=== PATIENT | female | born 1965 | race Caucasian/White ===

== ENCOUNTER → 2016-10-20 | Outpatient (CLI) | payer OTHER ==
[2016-10-20 15:34] LABS: Basophils # (A) 0.1 k/uL (0-0.2); Basophils % (A) 2 %; CH 29.4; CHCM 33.6; Eosinophils # (A) 0.4 k/uL (0-0.7); Eosinophils % (A) 5 %; HDW 2.68; HGB 14.1 gm/dL (11.4-16.0); Luc % (Auto) 1; Lymphocytes # (A) 2.8 k/uL (1.0-4.8); Lymphocytes % (A) 36 %; MCH 30.3 pg (25.0-35.0); MCHC 34.5 g/dL (31.0-37.0); Mean Platelet Volume 8.1; Monocytes # (A) 0.3 k/uL (0-1.0); Monocytes % (A) 4 %; Neutrophils # (A) 4.1 k/uL (1.3-7.7); Neutrophils % (A) 52 %; RBC 4.66 m/uL (3.80-5.40); RDW 13.4 % (11.5-15.5); WBC 7.8 k/uL (3.8-10.6); WBC (Perox) 8.06
[2016-10-20 15:39] LABS: ALT 51 U/L (9-52); AST 22 U/L (14-36); Alkaline Phosphatase 109 U/L (38-126); Anion Gap 10 mmol/L; Blood Urea Nitrogen 13 mg/dL (7-17); Carbon Dioxide 27 mmol/L (22-30); Chloride 108 mmol/L (98-107); Glucose 93 mg/dL (74-99); Non-African American GFR(MDRD) >60 (>60 ml/min/1.73 sqM); Potassium 4.6 mmol/L (3.5-5.1); Sodium 145 mmol/L (137-145); Total Bilirubin 0.5 mg/dL (0.2-1.3); Total Protein 6.7 g/dL (6.3-8.2)
[2016-10-20 18:37] LABS: Hemoglobin A1C 6.4 % (4.2-6.1)
== END | disposition home or self-care (01) ==
LOC: LABWHC1 15:07
PROVIDERS: ATTEND Family Medicine
DX: E11.9 Type 2 diabetes mellitus without complications (principal); I10 Essential (primary) hypertension
CPT/HCPCS: 36415; 80053; 83036; 85025

== ENCOUNTER → 2017-01-12 | Outpatient (CLI) | payer OTHER ==
[2017-01-12 14:51] LABS: Basophils % (A) 1 %; CHCM 34.3; Eosinophils # (A) 0.4 k/uL (0-0.7); Eosinophils % (A) 4 %; HDW 2.91; HGB 14.9 gm/dL (11.4-16.0); Luc # (Auto) 0.13; Luc % (Auto) 1; Lymphocytes # (A) 2.5 k/uL (1.0-4.8); Lymphocytes % (A) 26 %; MCH 29.7 pg (25.0-35.0); MCHC 33.9 g/dL (31.0-37.0); MCV 87.8 fL (80.0-100.0); Mean Platelet Volume 7.7; Monocytes # (A) 0.6 k/uL (0-1.0); Monocytes % (A) 6 %; Neutrophils # (A) 5.9 k/uL (1.3-7.7); Neutrophils % (A) 62 %; RBC 5.01 m/uL (3.80-5.40); RDW 12.6 % (11.5-15.5); WBC 9.5 k/uL (3.8-10.6); WBC (Perox) 9.18
[2017-01-12 15:04] LABS: ALT 33 U/L (9-52); AST 18 U/L (14-36); Alkaline Phosphatase 112 U/L (38-126); Anion Gap 10 mmol/L; Blood Urea Nitrogen 7 mg/dL (7-17); Calcium 9.6 mg/dL (8.4-10.2); Carbon Dioxide 27 mmol/L (22-30); Chloride 107 mmol/L (98-107); Cholesterol 126 mg/dL (<200); Glucose 125 mg/dL (74-99); HDL Cholesterol 45 mg/dL (40-60); Non-African American GFR(MDRD) >60 (>60 ml/min/1.73 sqM); Sodium 144 mmol/L (137-145); Total Bilirubin 0.8 mg/dL (0.2-1.3); Total Protein 7.4 g/dL (6.3-8.2); Triglycerides 155 mg/dL (<150)
[2017-01-12 18:48] LABS: Hemoglobin A1C 6.6 % (4.2-6.1)
== END | disposition home or self-care (01) ==
LOC: LABWHC1 14:35
PROVIDERS: ATTEND Family Medicine
DX: Z00.00 Encounter for general adult medical examination without abnormal findings (principal)
CPT/HCPCS: 36415; 80053; 80061; 83036; 85025

== ENCOUNTER → 2017-02-09 | Outpatient (CLI) | payer OTHER ==
[2017-02-09 13:05] LABS: Hepatitis C Virus IgG Ab Negative (Negative); Hepatitis C Virus IgG Index 0.02
== END | disposition home or self-care (01) ==
LOC: LABWHC1 11:38
PROVIDERS: ATTEND Family Medicine
DX: Z00.00 Encounter for general adult medical examination without abnormal findings (principal)
CPT/HCPCS: 36415; 84443; 86803

== ENCOUNTER → 2017-03-24 | Outpatient (CLI) | payer OTHER ==
--- NOTE | 2017-03-28 06:47 | MM ---
Reason for exam: screening (asymptomatic). Last mammogram was performed 1 year and 5 months ago. History: Patient is postmenopausal. Physical Findings: A clinical breast exam by your physician is recommended on an annual basis and results should be correlated with mammographic findings. MG Screening Mammo w CAD Bilateral CC and MLO view(s) were taken. Prior study comparison: November 06, 2015, bilateral MG screening mammo w CAD. There are scattered fibroglandular densities. There is no discrete abnormality. ASSESSMENT: Negative, BI-RAD 1 RECOMMENDATION: Routine screening mammogram of both breasts in 1 year.
== END ==
LOC: RADMAMWWP 14:49
PROVIDERS: ATTEND Family Medicine
DX: Z12.31 Encounter for screening mammogram for malignant neoplasm of breast (principal)

== ENCOUNTER → 2017-07-26 | Outpatient (CLI) | payer OTHER ==
[2017-07-26 12:29] LABS: ALT 43 U/L (9-52); AST 23 U/L (14-36); Alkaline Phosphatase 92 U/L (38-126); Anion Gap 9 mmol/L; Blood Urea Nitrogen 14 mg/dL (7-17); Calcium 9.2 mg/dL (8.4-10.2); Carbon Dioxide 26 mmol/L (22-30); Chloride 105 mmol/L (98-107); Glucose 263 mg/dL (74-99); Non-African American GFR(MDRD) >60 (>60 ml/min/1.73 sqM); Potassium 4.2 mmol/L (3.5-5.1); Sodium 140 mmol/L (137-145); Total Bilirubin 0.4 mg/dL (0.2-1.3); Total Protein 6.5 g/dL (6.3-8.2)
[2017-07-27 09:28] LABS: Basophils # (A) 0.1 k/uL (0-0.2); Basophils % (A) 1 %; CH 29.3; CHCM 31.4; Eosinophils # (A) 0.2 k/uL (0-0.7); Eosinophils % (A) 4 %; HDW 2.61; HGB 13.8 gm/dL (11.4-16.0); Hypochromasia Slight; Luc # (Auto) 0.15; Luc % (Auto) 3; Lymphocytes # (A) 1.6 k/uL (1.0-4.8); Lymphocytes % (A) 27 %; MCH 29.5 pg (25.0-35.0); MCHC 31.4 g/dL (31.0-37.0); MCV 93.8 fL (80.0-100.0); Mean Platelet Volume 9.5; Monocytes # (A) 0.3 k/uL (0-1.0); Monocytes % (A) 5 %; Neutrophils # (A) 3.6 k/uL (1.3-7.7); Neutrophils % (A) 61 %; RDW 12.9 % (11.5-15.5); WBC (Perox) 6.11
== END | disposition home or self-care (01) ==
LOC: LABWHC1 11:26
PROVIDERS: ATTEND Family Medicine
DX: E11.9 Type 2 diabetes mellitus without complications (principal); I10 Essential (primary) hypertension
CPT/HCPCS: 36415; 80053; 82306; 83036; 85025

== ENCOUNTER 2017-08-30 22:06 | Emergency (ER) | payer OTHER ==
[2017-08-30] MEDS ORDERED: SODIUM CHLORIDE 0.9% 500 ML IV ONE (22:46)
[2017-08-30 23:28] LABS: Basophils # (A) 0.1 k/uL (0-0.2); Basophils % (A) 1 %; Eosinophils # (A) 0.4 k/uL (0-0.7); Eosinophils % (A) 5 %; HCT 42.5 % (34.0-46.0); HGB 13.6 gm/dL (11.4-16.0); Lymphocytes # (A) 2.3 k/uL (1.0-4.8); Lymphocytes % (A) 31 %; MCH 28.3 pg (25.0-35.0); Mean Platelet Volume 8.3; Monocytes # (A) 0.4 k/uL (0-1.0); Monocytes % (A) 5 %; Neutrophils # (A) 4.1 k/uL (1.3-7.7); Neutrophils % (A) 57 %; Platelet Count 211 k/uL (150-450); WBC 7.3 k/uL (3.8-10.6)
[2017-08-30 23:34] LABS: Partial Thromboplastin Time 22.1 sec (22.0-30.0); Prothrombin Time 9.8 sec (9.0-12.0)
[2017-08-30 23:36] LABS: ALT 74 U/L (9-52); AST 37 U/L (14-36); Albumin 3.9 g/dL (3.5-5.0); Alkaline Phosphatase 132 U/L (38-126); Anion Gap 12 mmol/L; Blood Urea Nitrogen 14 mg/dL (7-17); Calcium 9.3 mg/dL (8.4-10.2); Carbon Dioxide 23 mmol/L (22-30); Chloride 105 mmol/L (98-107); Glucose 185 mg/dL (74-99); Potassium 3.9 mmol/L (3.5-5.1); Sodium 140 mmol/L (137-145); Total Bilirubin 0.3 mg/dL (0.2-1.3); Total Protein 6.2 g/dL (6.3-8.2)
[2017-08-30 23:38] VITALS: TEMP 97.5
[2017-08-30 23:45] LABS: MCV 88.5 fL (80.0-100.0)
--- NOTE | 2017-08-31 00:06 | ED ---
Female Urogenital HPI - General Chief complaint: Vaginal Bleeding Stated complaint: Vag Bleeding Time Seen by Provider: 08/30/17 22:25 Source: patient, EMS Mode of arrival: EMS Limitations: no limitations - History of Present Illness Initial comments: 52-year-old female patient presents to the emergency department today for complaints of vaginal bleeding. Patient states that this started approximately 5 days ago. She states that she has had passage of bright red blood with large clots. She states that she is using 2-3 pads per day. She states that she is postmenopausal, states that her last period was approximately 5 years ago. She states that she has not had any vaginal bleeding since then. She states yesterday evening she was having some suprapubic abdominal cramping. She denies any other pain with this. She states that she presented for evaluations today because she started to feel weak and dizzy. Patient denies any recent rash , fever, chills, shortness breath, chest pain, nausea, vomiting, diarrhea, constipation, back pain, numbness, tingling, hematuria, dysuria, urinary urgency , urinary frequency, headache, visual changes, or any other complaints. Patient has had a history of 2 sections, and right abdominal cyst. Patient states that she routinely gets pap testing and has never had abnormal cells that she knows of. - Related Data Home Medications Medication Instructions Recorded Confirmed Aspirin 81 mg PO DAILY 12/25/13 08/30/17 Atorvastatin [Lipitor] 20 mg PO DAILY 12/25/13 08/30/17 Butalb/Acetaminophen/Caffeine 1 tab PO Q8H PRN 12/25/13 08/30/17 [Fioricet 50-325-40 mg Tablet] Citalopram Hydrobromide 40 mg PO DAILY 12/25/13 08/30/17 [Citalopram HBr] Gabapentin [Neurontin] 600 mg PO TID 12/25/13 08/30/17 Lisinopril [Zestril] 2.5 mg PO DAILY 12/25/13 08/30/17 metFORMIN HCL [metFORMIN HCL ER] 750 mg PO BID 12/25/13 08/30/17 HYDROcodone/APAP 5-325MG [[place] 1 tab PO DAILY PRN 12/26/13 08/30/17 5-325] Verapamil HCl [Verapamil ER] 120 mg PO DAILY 12/26/13 08/30/17 Cholecalciferol (Vitamin D3) 2,000 unit PO DAILY 08/30/17 08/30/17 [Vitamin D3] Ergocalciferol (Vitamin D2) 50,000 unit PO MO 08/30/17 08/30/17 [Vitamin D2] Megestrol Acetate 40 mg PO BID 08/30/17 08/30/17 Allergies Allergy/AdvReac Type Severity Reaction Status Date / Time peach Allergy Rash/Hives Verified 08/30/17 22:23 poison farhat extract AdvReac Rash/Hives Verified 08/30/17 22:23 Review of Systems ROS Statement: Those systems with pertinent positive or pertinent negative responses have been documented in the HPI. ROS Other: All systems not noted in ROS Statement are negative. Past Medical History Past Medical History: Chest Pain / Angina, Diabetes Mellitus, GERD/Reflux, Hyperlipidemia, Hypertension, Sleep Apnea/CPAP/BIPAP Additional Past Medical History / Comment(s): CHEST PAIN RADIATING DOWN LEFT ARM INTERMITT.,SOB W/ ACTIVITY History of Any Multi-Drug Resistant Organisms: None Reported Past Surgical History: Section, Tubal Ligation Additional Past Surgical History / Comment(s): 01/06/2016 - hysteroscopy with dilation and curretage. 2 cysts removed. left arm mass removed. 18 Years old, laser suregery to have cysts removed. Past Anesthesia/Blood Transfusion Reactions: No Reported Reaction Past Psychological History: Depression Smoking Status: Never smoker Past Alcohol Use History: None Reported Past Drug Use History: None Reported - Past Family History Mother Family Medical History: Cancer Additional Family Medical History / Comment(s): uterine cancer General Exam Limitations: no limitations General appearance: alert, in no apparent distress, other (This is a well- developed, well-nourished adult female patient in no acute distress. Vital signs upon presentation were temperature 97.5F, pulse 91, respirations 16, blood pressure 181/115, pulse ox 97% on room air.) Eye exam: Present: normal appearance, PERRL, EOMI. Absent: scleral icterus, conjunctival injection, periorbital swelling ENT exam: Present: normal exam, normal oropharynx, mucous membranes moist Respiratory exam: Present: normal lung sounds bilaterally. Absent: respiratory distress, wheezes, rales, rhonchi, stridor Cardiovascular Exam: Present: regular rate, normal rhythm, normal heart sounds. Absent: systolic murmur, diastolic murmur, rubs, gallop, clicks GI/Abdominal exam: Present: soft, tenderness (Mild suprapubic tenderness), normal bowel sounds. Absent: distended, guarding, rebound, rigid External exam: Present: normal external exam Speculum exam: Present: vaginal bleeding (dark red, small amount), other ( Cervix is pink and moist. No friability, lesions, or masses noted. ) By manual exam: Present: normal by manual exam Extremities exam: Present: normal inspection, full ROM, normal capillary refill. Absent: tenderness, pedal edema, joint swelling, calf tenderness Neurological exam: Present: alert, oriented X3, CN II-XII intact Psychiatric exam: Present: normal affect, normal mood Skin exam: Present: warm, dry, intact, normal color. Absent: rash Course Vital Signs 08/30/17 08/31/17 22:07 00:20 Temperature 97.5 F L Pulse Rate 91 83 Respiratory 16 20 Rate Blood Pressure 188/115 149/76 O2 Sat by Pulse 97 97 Oximetry Medical Decision Making - Medical Decision Making 52-year-old female patient presented to the emergency department today for complaints of vaginal bleeding. Patient is postmenopausal for the last 5 years. Physical examination is unremarkable. Pelvic examination did reveal a small amount of dark red vaginal bleeding, appears to be coming from the cervical os. Bimanual exam is unremarkable. Labs were reviewed and were unremarkable. Ultrasound was obtained and did show a fibroid uterus, cervical cyst, mild endometrial thickening. No adnexal masses. I did discuss findings with the patient. She does have an appointment with her COMMERCIAL ENERGY AUDITOR on 09/12/2017. She is instructed to keep this appointment. I did inform her that she should return immediately should her bleeding increase. She is currently using 2-3 pads per day. I told her this is not concerning at this time for significant blood loss. I did discuss return parameters in detail. She is instructed to return here immediately for any new, worsening, or concerning symptoms. She verbalizes understanding and agrees with this plan. - Lab Data Result diagrams: 08/30/17 23:14 08/30/17 23:14 Lab Results 08/30/17 08/30/17 08/30/17 Range/Units 23:14 23:14 23:14 WBC 7.3 (3.8-10.6) k/uL RBC 4.80 (3.80-5.40) m/uL Hgb 13.6 (11.4-16.0) gm/dL Hct 42.5 (34.0-46.0) % MCV 88.5 D (80.0-100.0) fL MCH 28.3 (25.0-35.0) pg MCHC 32.0 (31.0-37.0) g/dL RDW 14.0 (11.5-15.5) % Plt Count 211 (150-450) k/uL Neutrophils % 57 % Lymphocytes % 31 % Monocytes % 5 % Eosinophils % 5 % Basophils % 1 % Neutrophils # 4.1 (1.3-7.7) k/uL Lymphocytes # 2.3 (1.0-4.8) k/uL Monocytes # 0.4 (0-1.0) k/uL Eosinophils # 0.4 (0-0.7) k/uL Basophils # 0.1 (0-0.2) k/uL PT 9.8 (9.0-12.0) sec INR 1.0 (<1.2) APTT 22.1 (22.0-30.0) sec Sodium 140 (137-145) mmol/L Potassium 3.9 (3.5-5.1) mmol/L Chloride 105 (98-107) mmol/L Carbon Dioxide 23 (22-30) mmol/L Anion Gap 12 mmol/L BUN 14 (7-17) mg/dL Creatinine 0.65 (0.52-1.04) mg/dL Est GFR (MDRD) Af Amer >60 (>60 ml/min/1.73 sqM) Est GFR (MDRD) Non-Af >60 (>60 ml/min/1.73 sqM) Glucose 185 H (74-99) mg/dL Calcium 9.3 (8.4-10.2) mg/dL Total Bilirubin 0.3 (0.2-1.3) mg/dL AST 37 H (14-36) U/L ALT 74 H (9-52) U/L Alkaline Phosphatase 132 H (38-126) U/L Total Protein 6.2 L (6.3-8.2) g/dL Albumin 3.9 (3.5-5.0) g/dL - Radiology Data Radiology results: report reviewed, image reviewed Transvaginal ultrasound of the pelvis was obtained and did show the uterus is anteverted with a heterogenous fibroid uterus largest measuring 5.8 x 5.1 x 5.6 cm and 3.7 x 4.9 x 3.5 cm. There is a solid area in the cervix measuring 1.8 x 1.3 x 2.0 cm. The endometrium is thickened with echogenic foci and 2 anechoic areas seen. Impression by Dr. Andres shows fibroid uterus. Large cervical cyst. The measures 1.8 x 1.3 cm. Mild endometrial thickening. Endometrial thickening 2 cm a similar to the previous exam. No adnexal mass. Disposition Clinical Impression: Dysfunctional uterine bleeding, Fibroid uterus, Cyst of cervix Disposition: HOME SELF-CARE Condition: Good Instructions: Dysfunctional Uterine Bleeding (ED), Uterine Fibroids (ED) Additional Instructions: Increase fluids. Keep your appointment with the COMMERCIAL ENERGY AUDITOR. Return here immediately for any new, worsening, or concerning symptoms. Referrals: Cornell Lloyd MD [Primary Care Provider] - 1-2 days Time of Disposition: 00:34
--- NOTE | 2017-08-31 00:12 | US ---
EXAMINATION TYPE: US transvaginal DATE OF EXAM: 08/30/2017 COMPARISON: 11/06/2015 CLINICAL HISTORY: pain. Abnormal bleeding TECHNIQUE: Transvaginal (TV) Date of LMP: Now EXAM MEASUREMENTS: Uterus: 12.1 x 6.3 x 9.9 cm Endometrial Stripe: 2.1 cm 1. Uterus: Anteverted Heterogenous fibroid uterus largest two measuring 5.8 x 5.1 x 5.6 cm and 3.7 x 4.9 x 3.5 cm. Solid area in cervix measuring 1.8 x 1.3 x 2.0 cm. 2. Endometrium: Thickened with echogenic foci and two anechoic areas seen 3. Right Ovary: Obscured by overlying bowel gas 4. Left Ovary: Obscured by overlying bowel gas 5. Bilateral Adnexa: appears wnl 6. Posterior cul-de-sac: wnl Heterogenous fibroid uterus visualized with thickened endometrium. Solid area seen in cervix measurin g 1.8 x 1.3 x 2.0 cm. IMPRESSION: Fibroid uterus. Large cervical cyst. This measures 1.8 x 1.3 cm. Mild endometrial thicken ing. Endometrial thickening 2 cm is similar to the previous exam. No adnexal mass.
[2017-08-31 00:21] VITALS: BP 149/76; PULSE 83; RESP 20
== END 2017-08-31 00:50 | disposition home or self-care (01) ==
LOC: EC 22:06
DX: N93.8 Other specified abnormal uterine and vaginal bleeding (principal); D25.9 Leiomyoma of uterus, unspecified; N88.8 Other specified noninflammatory disorders of cervix uteri; E11.9 Type 2 diabetes mellitus without complications; E78.5 Hyperlipidemia, unspecified; I10 Essential (primary) hypertension; F32.9 Major depressive disorder, single episode, unspecified; Z98.51 Tubal ligation status; Z91.018 Allergy to other foods; Z91.048 Other nonmedicinal substance allergy status; Z98.890 Other specified postprocedural states; Z79.84 Long term (current) use of oral hypoglycemic drugs; Z79.82 Long term (current) use of aspirin; Z79.899 Other long term (current) drug therapy
CPT/HCPCS: 36415; 76830; 80053; 85025; 85610; 85730; 96360; 99285

== ENCOUNTER → 2017-11-22 | Outpatient (CLI) | payer OTHER ==
[2017-11-22 17:12] LABS: Basophils % (A) 0 %; Eosinophils # (A) 0.3 k/uL (0-0.7); Eosinophils % (A) 3 %; HCT 42.1 % (34.0-46.0); HGB 13.3 gm/dL (11.4-16.0); Lymphocytes # (A) 2.1 k/uL (1.0-4.8); Lymphocytes % (A) 28 %; MCH 27.3 pg (25.0-35.0); MCHC 31.6 g/dL (31.0-37.0); MCV 86.3 fL (80.0-100.0); Mean Platelet Volume 8.2; Monocytes # (A) 0.4 k/uL (0-1.0); Monocytes % (A) 5 %; Neutrophils # (A) 4.8 k/uL (1.3-7.7); Neutrophils % (A) 63 %; Platelet Count 228 k/uL (150-450); RBC 4.88 m/uL (3.80-5.40); RDW 12.9 % (11.5-15.5); WBC 7.7 k/uL (3.8-10.6)
[2017-11-22 17:22] LABS: ALT 56 U/L (9-52); AST 25 U/L (14-36); Albumin 4.1 g/dL (3.5-5.0); Alkaline Phosphatase 126 U/L (38-126); Anion Gap 10 mmol/L; Blood Urea Nitrogen 17 mg/dL (7-17); Calcium 9.7 mg/dL (8.4-10.2); Carbon Dioxide 30 mmol/L (22-30); Chloride 102 mmol/L (98-107); Glucose 147 mg/dL (74-99); Potassium 4.7 mmol/L (3.5-5.1); Sodium 142 mmol/L (137-145); Total Bilirubin 0.3 mg/dL (0.2-1.3); Total Protein 6.5 g/dL (6.3-8.2)
== END | disposition home or self-care (01) ==
LOC: LABWHC1 16:44
PROVIDERS: ATTEND Family Medicine
DX: E11.9 Type 2 diabetes mellitus without complications (principal)
CPT/HCPCS: 36415; 80053; 85025

== ENCOUNTER → 2018-03-21 | Outpatient (CLI) | payer OTHER ==
--- NOTE | 2018-03-22 07:49 | MR ---
MRI CERVICAL SPINE: CLINICAL HISTORY: Cervicalgia per order. Headache with neck pain for 2 years per patient. History of sprain injury per patient. TECHNIQUE: Multiplanar, multisequence imaging of the cervical spine is performed without IV contrast. COMPARISON: Prior MRI cervical spine March 11, 2015. FINDINGS: Sagittal images of the cervical spine show the craniocervical junction to remain within nor mal limits. The cervical and upper thoracic spinal cord remains normal in course, caliber, and signa l. Vertebral alignment is stable and anatomic. The vertebral body and intravertebral disk heights r emain normal. Small posterior disc herniation C5-C6 level is redemonstrated on sagittal images. The bone marrow signal intensity is within normal limits. No significant spurring is seen. Axial images show the C2-C3 level to remain within normal limits. Axial images at C3-C4 level show uncovertebral facet degenerative changes bilaterally contributing to mild bilateral neural foraminal narrowing. Spinal canal is preserved. No significant change from luc or. Axial images at C4-C5 level show uncovertebral facet degenerative changes bilaterally causing mild bi lateral neural foraminal narrowing more prominent versus prior MRI. Axial images at C5-C6 level show broad-based central disc protrusion effacing anterior thecal sac, bi lateral neural foramina are patent. No significant change from prior. Axial images at C6-C7 shows less prominent posterior disc protrusion minimally effacing anterior thec al sac, bilateral neural foramina are patent. No significant change from prior. Axial images at C7-T1 level are felt to remain within normal limits. IMPRESSION: Stable disc herniation C5-C6 level. Additional multilevel degenerative changes as detaile d above. No significant change from prior MRI.
== END | disposition home or self-care (01) ==
LOC: RADMRIMAIN 17:45
PROVIDERS: ATTEND Psychiatry & Neurology Neurology
DX: M50.222 Other cervical disc displacement at C5-C6 level (principal); M47.812 Spondylosis without myelopathy or radiculopathy, cervical region
CPT/HCPCS: 72141

== ENCOUNTER → 2018-05-22 | Outpatient (CLI) | payer OTHER ==
--- NOTE | 2018-05-24 11:12 | MM ---
Reason for exam: screening (asymptomatic). Last mammogram was performed 1 year and 2 months ago. History: Patient is postmenopausal. Took hormonal contraceptives for 28 years beginning at age 18. Physical Findings: A clinical breast exam by your physician is recommended on an annual basis and results should be correlated with mammographic findings. MG Screening Mammo w CAD Bilateral CC and MLO view(s) were taken. Prior study comparison: March 24, 2017, bilateral MG screening mammo w CAD. November 06, 2015, bilateral MG screening mammo w CAD. There are scattered fibroglandular densities. No significant changes when compared with prior studies. ASSESSMENT: Negative, BI-RAD 1 RECOMMENDATION: Routine screening mammogram of both breasts in 1 year.
== END | disposition home or self-care (01) ==
LOC: RADMAMWWP 13:31
PROVIDERS: ATTEND Family Medicine
DX: Z12.31 Encounter for screening mammogram for malignant neoplasm of breast (principal)
CPT/HCPCS: 77067

== ENCOUNTER 2018-06-25 14:16 | Emergency (ER) | payer OTHER ==
[2018-06-25 14:28] VITALS: TEMP 98
--- NOTE | 2018-06-25 14:59 | ED ---
General Adult HPI - General Chief complaint: Recheck/Abnormal Lab/Rx Stated complaint: Hypertension Time Seen by Provider: 06/25/18 14:38 Source: patient, EMS, RN notes reviewed Mode of arrival: EMS Limitations: no limitations - History of Present Illness Initial comments: Patient is a pleasant 53-year-old female presenting to the emergency department for hypertension. Patient went to her customer experience strategist today and was told her blood pressure was high. Blood pressure was approximately 220/120. Patient states overall she feels fine and does not have specific complaint. No chest pain. No dyspnea. No weakness or confusion. Patient does have history of chronic hypertension and does take medication. Patient has not missed her medication. - Related Data Home Medications Medication Instructions Recorded Confirmed Aspirin 81 mg PO DAILY 12/25/13 06/25/18 Atorvastatin [Lipitor] 20 mg PO DAILY 12/25/13 06/25/18 Butalb/Acetaminophen/Caffeine 1 tab PO Q8H PRN 12/25/13 06/25/18 [Fioricet 50-325-40 mg Tablet] Citalopram Hydrobromide 40 mg PO DAILY 12/25/13 06/25/18 [Citalopram HBr] Gabapentin [Neurontin] 600 mg PO TID 12/25/13 06/25/18 Lisinopril [Zestril] 2.5 mg PO DAILY 12/25/13 06/25/18 metFORMIN HCL [metFORMIN HCL ER] 750 mg PO BID 12/25/13 06/25/18 HYDROcodone/APAP 5-325MG [Left Hand 1 tab PO DAILY PRN 12/26/13 06/25/18 5-325] Verapamil HCl [Verapamil ER] 120 mg PO DAILY 12/26/13 06/25/18 Cholecalciferol (Vitamin D3) 2,000 unit PO DAILY 08/30/17 06/25/18 [Vitamin D3] Ergocalciferol (Vitamin D2) 50,000 unit PO AMBROCIO 08/30/17 06/25/18 [Vitamin D2] Meclizine [Antivert] 25 mg PO TID PRN 06/25/18 06/25/18 Multivitamins, Thera [Multivitamin 1 tab PO DAILY 06/25/18 06/25/18 (formulary)] Allergies Allergy/AdvReac Type Severity Reaction Status Date / Time peach Allergy Rash/Hives Verified 06/25/18 15:39 poison farhat extract AdvReac Rash/Hives Verified 06/25/18 15:39 Review of Systems ROS Statement: Those systems with pertinent positive or pertinent negative responses have been documented in the HPI. ROS Other: All systems not noted in ROS Statement are negative. Constitutional: Denies: fever Eyes: Denies: eye pain ENT: Denies: ear pain Respiratory: Denies: cough Cardiovascular: Denies: chest pain Endocrine: Denies: fatigue Gastrointestinal: Denies: abdominal pain Genitourinary: Denies: dysuria Musculoskeletal: Denies: back pain Skin: Denies: rash Neurological: Denies: weakness, confusion Past Medical History Past Medical History: Chest Pain / Angina, Diabetes Mellitus, GERD/Reflux, Hyperlipidemia, Hypertension, Sleep Apnea/CPAP/BIPAP Additional Past Medical History / Comment(s): CHEST PAIN RADIATING DOWN LEFT ARM INTERMITT.,SOB W/ ACTIVITY History of Any Multi-Drug Resistant Organisms: None Reported Past Surgical History: Section, Tubal Ligation Additional Past Surgical History / Comment(s): 01/06/2016 - hysteroscopy with dilation and curretage. 2 cysts removed. left arm mass removed. 18 Years old, laser suregery to have cysts removed. Past Anesthesia/Blood Transfusion Reactions: No Reported Reaction Past Psychological History: Depression Smoking Status: Never smoker Past Alcohol Use History: None Reported Past Drug Use History: None Reported - Past Family History Mother Family Medical History: Cancer Additional Family Medical History / Comment(s): uterine cancer General Exam Limitations: no limitations General appearance: alert, in no apparent distress Head exam: Present: atraumatic Eye exam: Present: normal appearance, PERRL, EOMI. Absent: nystagmus ENT exam: Present: normal oropharynx Neck exam: Present: normal inspection Respiratory exam: Present: normal lung sounds bilaterally Cardiovascular Exam: Present: regular rate, normal rhythm Expanded Peripheral pulses: 2+: Radial (R), Radial (L), Dorsalis Pedis (R), Dorsalis Pedis (L) GI/Abdominal exam: Present: soft. Absent: tenderness Extremities exam: Present: normal inspection. Absent: pedal edema, calf tenderness Neurological exam: Present: alert, oriented X3, CN II-XII intact. Absent: motor sensory deficit Expanded Neurological exam: Present: protecting the airway Speech: Present: fluid speech Motor strength exam: RUE: 5, LUE: 5, RLE: 5, LLE: 5 Psychiatric exam: Present: normal affect, normal mood Skin exam: Present: normal color Course Vital Signs 06/25/18 06/25/18 06/25/18 14:22 14:25 14:30 Temperature 98.0 F Pulse Rate 80 83 79 Respiratory 20 17 15 Rate Blood Pressure 164/84 164/96 O2 Sat by Pulse 96 93 L Oximetry 06/25/18 06/25/18 06/25/18 15:00 15:30 16:00 Temperature Pulse Rate 86 91 86 Respiratory 15 17 18 Rate Blood Pressure 152/96 158/91 156/96 O2 Sat by Pulse 93 L 92 L 96 Oximetry EKG Findings - EKG Comments: EKG Findings:: Normal sinus rhythm 85. PA 160. QRS 84. QT 376. QTc 447. Normal axis. Normal QRS. No acute ST change. Medical Decision Making - Medical Decision Making Patient reevaluated and resting comfortably in bed. Blood pressure remains stable. Patient updated on results and need for follow-up. - Lab Data Result diagrams: 06/25/18 14:30 06/25/18 14:30 Lab Results 06/25/18 06/25/18 Range/Units 14:30 14:30 WBC 6.2 (3.8-10.6) k/uL RBC 4.70 (3.80-5.40) m/uL Hgb 13.6 (11.4-16.0) gm/dL Hct 41.5 (34.0-46.0) % MCV 88.1 (80.0-100.0) fL MCH 28.9 (25.0-35.0) pg MCHC 32.8 (31.0-37.0) g/dL RDW 13.2 (11.5-15.5) % Plt Count 212 (150-450) k/uL Neutrophils % 66 % Lymphocytes % 24 % Monocytes % 4 % Eosinophils % 4 % Basophils % 0 % Neutrophils # 4.1 (1.3-7.7) k/uL Lymphocytes # 1.5 (1.0-4.8) k/uL Monocytes # 0.3 (0-1.0) k/uL Eosinophils # 0.3 (0-0.7) k/uL Basophils # 0.0 (0-0.2) k/uL Sodium 139 (137-145) mmol/L Potassium 4.4 (3.5-5.1) mmol/L Chloride 105 (98-107) mmol/L Carbon Dioxide 29 (22-30) mmol/L Anion Gap 5 mmol/L BUN 11 (7-17) mg/dL Creatinine 0.47 L (0.52-1.04) mg/dL Est GFR (CKD-EPI)AfAm >90 (>60 ml/min/1.73 sqM) Est GFR (CKD-EPI)NonAf >90 (>60 ml/min/1.73 sqM) Glucose 235 H (74-99) mg/dL Calcium 9.3 (8.4-10.2) mg/dL Disposition Clinical Impression: Hypertension Disposition: HOME SELF-CARE Condition: Stable Instructions: Hypertension (ED) Additional Instructions: Please follow-up with primary care physician in the next couple days for recheck. Return for increased blood pressure weakness or confusion, chest pain , worsening symptoms or other concerns. Is patient prescribed a controlled substance at d/c from ED?: No Referrals: Cornell Lloyd MD [Primary Care Provider] - 1-2 days Time of Disposition: 16:27
[2018-06-25 15:14] LABS: Basophils % (A) 0 %; Eosinophils # (A) 0.3 k/uL (0-0.7); Eosinophils % (A) 4 %; HCT 41.5 % (34.0-46.0); HGB 13.6 gm/dL (11.4-16.0); Lymphocytes # (A) 1.5 k/uL (1.0-4.8); Lymphocytes % (A) 24 %; MCH 28.9 pg (25.0-35.0); MCHC 32.8 g/dL (31.0-37.0); MCV 88.1 fL (80.0-100.0); Mean Platelet Volume 7.5; Monocytes # (A) 0.3 k/uL (0-1.0); Monocytes % (A) 4 %; Neutrophils # (A) 4.1 k/uL (1.3-7.7); Neutrophils % (A) 66 %; Platelet Count 212 k/uL (150-450); RDW 13.2 % (11.5-15.5); WBC 6.2 k/uL (3.8-10.6)
[2018-06-25 15:22] LABS: Anion Gap 5 mmol/L; Blood Urea Nitrogen 11 mg/dL (7-17); Calcium 9.3 mg/dL (8.4-10.2); Carbon Dioxide 29 mmol/L (22-30); Chloride 105 mmol/L (98-107); Glucose 235 mg/dL (74-99); Potassium 4.4 mmol/L (3.5-5.1); Sodium 139 mmol/L (137-145)
[2018-06-25 16:41] VITALS: BP 137/88
[2018-06-25 17:09] VITALS: PULSE 88; RESP 17
== END 2018-06-25 17:13 | disposition home or self-care (01) ==
LOC: EC 14:16
DX: I10 Essential (primary) hypertension (principal); I20.9 Angina pectoris, unspecified; F32.9 Major depressive disorder, single episode, unspecified; E11.9 Type 2 diabetes mellitus without complications; E78.5 Hyperlipidemia, unspecified; G47.30 Sleep apnea, unspecified; Z99.89 Dependence on other enabling machines and devices; Z98.51 Tubal ligation status; Z98.890 Other specified postprocedural states; Z79.82 Long term (current) use of aspirin; Z79.84 Long term (current) use of oral hypoglycemic drugs; Z79.899 Other long term (current) drug therapy; Z91.018 Allergy to other foods; Z91.048 Other nonmedicinal substance allergy status
CPT/HCPCS: 36415; 80048; 85025; 93005; 99284

== ENCOUNTER → 2018-10-02 | Outpatient (CLI) | payer OTHER ==
[2018-10-02 15:16] LABS: Basophils % (A) 0 %; Eosinophils # (A) 0.3 k/uL (0-0.7); Eosinophils % (A) 4 %; HCT 41.2 % (34.0-46.0); HGB 12.9 gm/dL (11.4-16.0); Lymphocytes # (A) 1.8 k/uL (1.0-4.8); Lymphocytes % (A) 26 %; MCH 28.2 pg (25.0-35.0); MCHC 31.3 g/dL (31.0-37.0); MCV 89.9 fL (80.0-100.0); Mean Platelet Volume 7.6; Monocytes # (A) 0.3 k/uL (0-1.0); Monocytes % (A) 5 %; Neutrophils # (A) 4.5 k/uL (1.3-7.7); Neutrophils % (A) 64 %; Platelet Count 199 k/uL (150-450); RBC 4.59 m/uL (3.80-5.40); RDW 13.6 % (11.5-15.5); WBC 6.9 k/uL (3.8-10.6)
[2018-10-02 20:47] LABS: Albumin 4.2 g/dL (3.80-4.90); Albumin/Globulin Ratio 2.21 (1.60-3.17); Anion Gap 6.4 mmol/L (4.00-12.00); Calcium 8.8 mg/dL (8.7-10.3); Carbon Dioxide 29.6 mmol/L (21.6-31.8); Globulin 1.9 g/dL (1.6-3.3); Total Bilirubin 0.2 mg/dL (0.3-1.2); Total Protein 6.1 g/dL (6.2-8.2)
[2018-10-02 21:21] LABS: Hemoglobin A1C 8.8 % (4.0-6.0)
== END | disposition home or self-care (01) ==
LOC: LABWHC1 14:26
PROVIDERS: ATTEND Family Medicine
DX: E11.9 Type 2 diabetes mellitus without complications (principal); I10 Essential (primary) hypertension
CPT/HCPCS: 36415; 80053; 83036; 85025

== ENCOUNTER → 2019-05-23 | Outpatient (CLI) | payer OTHER ==
--- NOTE | 2019-05-24 13:55 | MM ---
Reason for exam: screening (asymptomatic). Last mammogram was performed 1 year ago. History: Patient is postmenopausal. Took hormonal contraceptives for 28 years beginning at age 18. Physical Findings: A clinical breast exam by your physician is recommended on an annual basis and results should be correlated with mammographic findings. MG Screening Mammo w CAD Bilateral CC and MLO view(s) were taken. Prior study comparison: May 22, 2018, bilateral MG screening mammo w CAD. March 24, 2017, bilateral MG screening mammo w CAD. There are scattered fibroglandular densities. No significant changes when compared with prior studies. ASSESSMENT: Benign, BI-RAD 2 RECOMMENDATION: Routine screening mammogram of both breasts in 1 year.
== END | disposition home or self-care (01) ==
LOC: RADMAMWWP 12:33
PROVIDERS: ATTEND Obstetrics & Gynecology
DX: Z12.31 Encounter for screening mammogram for malignant neoplasm of breast (principal)
CPT/HCPCS: 77067

== ENCOUNTER 2019-08-07 06:56 | Day surgery (SDC) | payer OTHER ==
[2019-08-02 15:04] VITALS: BMI 43.9
[~2019-08-07 06:56] MED LIST: LACTATED RINGERS 1,000 ML IV SCH; LIDOCAINE 1% 20 ML VIAL (10MG/ML) FOR IV START INTRADERMA PRN
[2019-08-07 07:17] VITALS: TEMP 96.2
[2019-08-07] MEDS ORDERED: LACTATED RINGERS 1,000 ML IV ONE ×2 (07:22)
[2019-08-07 07:24] LABS: Glucose,Whole Blood 173 mg/dL (75-99)
[2019-08-07] MEDS ORDERED: PROPOFOL 10 MG/ML 20 ML VIAL IV ONE (07:35)
--- NOTE | 2019-08-07 07:51 | P.PCN ---
Date of Procedure: 08/07/19 Procedure(s) Performed: BRIEF HISTORY: Patient is a 54-year-old pleasant at female, scheduled for an elective colonoscopy as a part of screening for colorectal neoplasia. PROCEDURE PERFORMED: Colonoscopy. PREOPERATIVE DIAGNOSIS: Screening for colon cancer. IV sedation per Anesthesia. PROCEDURE: After informed consent was obtained, the patient, was brought into the endoscopy unit. IV sedation was administered by Anesthesia under continuous monitoring. Digital rectal examination was normal. Initially the Olympus CF-160 flexible video colonoscope was then inserted in the rectum, gradually advanced into the cecum without any difficulty. Careful examination was performed as the scope was gradually being withdrawn. Ileocecal valve and the appendiceal orifice were visualized and appeared normal. Prep was good.. Mucosa of the cecum, ascending colon, transverse colon, descending colon, sigmoid colon, and rectum appeared normal. Retroflexion was performed in the rectum and no lesions were seen. The patient tolerated the procedure well. IMPRESSION: Normal-appearing colon from rectum to cecum with no evidence of colorectal . RECOMMENDATIONS: Findings of this examination were discussed with the patient as well as a family. She was advised to have a repeat screening colonoscopy in 10 years.
[2019-08-07 07:54] VITALS: PULSE 80; RESP 16
[2019-08-07 08:21] VITALS: BP 136/78
== END 2019-08-07 08:47 | disposition home or self-care (01) ==
LOC: ORWHC2ENDO 06:56
PROVIDERS: ATTEND Internal Medicine Gastroenterology
DX: Z12.11 Encounter for screening for malignant neoplasm of colon (principal); I10 Essential (primary) hypertension; E78.5 Hyperlipidemia, unspecified; G47.33 Obstructive sleep apnea (adult) (pediatric); E11.9 Type 2 diabetes mellitus without complications; K21.9 Gastro-esophageal reflux disease without esophagitis; Z79.899 Other long term (current) drug therapy; Z79.4 Long term (current) use of insulin; Z79.891 Long term (current) use of opiate analgesic
CPT/HCPCS: J2704; G0121

== ENCOUNTER 2019-08-31 23:11 | Emergency (ER) | payer OTHER ==
[2019-08-31 23:29] VITALS: TEMP 98
[2019-08-31 23:30] LABS: Glucose,Whole Blood 329 mg/dL (75-99)
[2019-09-01] MEDS ORDERED: SODIUM CHLORIDE 0.9% 2,000 ML IV ONE (00:22)
[2019-09-01 01:08] LABS: Basophils % (A) 0 %; Eosinophils % (A) 0 %; HCT 39.8 % (34.0-46.0); Lymphocytes # (A) 1.9 k/uL (1.0-4.8); Lymphocytes % (A) 19 %; MCH 29.1 pg (25.0-35.0); MCHC 32.5 g/dL (31.0-37.0); MCV 89.3 fL (80.0-100.0); Mean Platelet Volume 8.6; Monocytes # (A) 0.4 k/uL (0-1.0); Monocytes % (A) 4 %; Neutrophils # (A) 7.6 k/uL (1.3-7.7); Neutrophils % (A) 75 %; Platelet Count 225 k/uL (150-450); RBC 4.45 m/uL (3.80-5.40); RDW 12.9 % (11.5-15.5); WBC 10.1 k/uL (3.8-10.6)
[2019-09-01 01:16] LABS: ALT 42 U/L (4-34); AST 26 U/L (14-36); African American GFR (CKD) >90 (>60 ml/min/1.73 sqM); Albumin 3.9 g/dL (3.5-5.0); Alkaline Phosphatase 152 U/L (38-126); Anion Gap 6 mmol/L; Blood Urea Nitrogen 21 mg/dL (7-17); Carbon Dioxide 29 mmol/L (22-30); Chloride 101 mmol/L (98-107); Glucose 323 mg/dL (74-99); Non-African American GFR(CKD) >90 (>60 ml/min/1.73 sqM); Potassium 4.4 mmol/L (3.5-5.1); Sodium 136 mmol/L (137-145); Total Bilirubin 0.3 mg/dL (0.2-1.3); Total Protein 6.4 g/dL (6.3-8.2)
[2019-09-01] MEDS ORDERED: INSULIN ASPART (NovoLOG) 100 UNIT/ML VIAL SQ ONE (01:31)
[2019-09-01 02:10] LABS: VBG PH 7.37 (7.31-7.41)
--- NOTE | 2019-09-01 02:33 | ED ---
Recheck HPI - General Chief Complaint: Recheck/Abnormal Lab/Rx Stated Complaint: Hypertension Time Seen by Provider: 08/31/19 23:47 Source: patient Mode of arrival: wheelchair Limitations: no limitations - History of Present Illness Initial Comments: Maya is a pleasant 54-year-old female who presents to the emergency department today for evaluation of hypertension and hyperglycemia. Patient reports since yesterday she has had elevated blood pressure despite being compliant with her home medications. Patient also reports that her glucose is been elevated she states that he usually runs in the 200 300 range however yesterday she had a reading in the 450s and her glucose is never that high before. Patient reports she feels mildly rundown but no other complaints no chest pain palpitation shortness breath lightheadedness diaphoresis. She is urinating more than usual not less. No known history of kidney disease. She states that she is on me tformin twice daily and give herself 15 units of long-acting insulin at night. Patient states she's been compliant with this diabetes regimen. - Related Data Home Medications Medication Instructions Recorded Confirmed Aspirin 81 mg PO DAILY 12/25/13 08/02/19 Atorvastatin [Lipitor] 20 mg PO DAILY 12/25/13 08/02/19 Butalb/Acetaminophen/Caffeine 1 tab PO Q8H PRN 12/25/13 08/02/19 [Fioricet 50-325-40 mg Tablet] Citalopram Hydrobromide 40 mg PO DAILY 12/25/13 08/02/19 [Citalopram HBr] Gabapentin [Neurontin] 600 mg PO TID 12/25/13 08/02/19 Lisinopril [Zestril] 2.5 mg PO AC-SUPPER 12/25/13 08/02/19 metFORMIN HCL [metFORMIN HCL ER] 500 mg PO BID 12/25/13 08/02/19 HYDROcodone/APAP 5-325MG [[place] 1 tab PO DAILY PRN 12/26/13 08/02/19 5-325] Verapamil HCl [Verapamil ER] 120 mg PO AC-SUPPER 12/26/13 08/02/19 Cholecalciferol (Vitamin D3) 2,000 unit PO DAILY 08/30/17 08/02/19 [Vitamin D3] Multivitamins, Thera [Multivitamin 1 tab PO DAILY 06/25/18 08/02/19 (formulary)] Ibuprofen 800 mg PO TID 08/02/19 08/02/19 Insulin Glargine,Hum.rec.anlog 15 unit SQ HS 08/02/19 08/02/19 [Lauren Ernandez U-100] Allergies Allergy/AdvReac Type Severity Reaction Status Date / Time peach Allergy Rash/Hives Verified 08/31/19 23:29 poison oak extract Allergy Rash/Hives Verified 08/31/19 23:29 wool Allergy Rash/Hives Verified 08/31/19 23:29 poison farhat extract AdvReac Rash/Hives Verified 08/31/19 23:29 Review of Systems ROS Statement: Those systems with pertinent positive or pertinent negative responses have been documented in the HPI. ROS Other: All systems not noted in ROS Statement are negative. Past Medical History Past Medical History: Chest Pain / Angina, Diabetes Mellitus, GERD/Reflux, Hyperlipidemia, Hypertension, Sleep Apnea/CPAP/BIPAP Additional Past Medical History / Comment(s): CHEST PAIN RADIATING DOWN LEFT ARM INTERMITT.,SOB W/ ACTIVITY,cpap machine History of Any Multi-Drug Resistant Organisms: None Reported Past Surgical History: Section, Tubal Ligation Additional Past Surgical History / Comment(s): 01/06/2016 - hysteroscopy with dilation and curretage. 2 cysts removed. left arm mass removed. 18 Years old, laser surgery to have cysts removed. Past Anesthesia/Blood Transfusion Reactions: No Reported Reaction Past Psychological History: Depression Smoking Status: Never smoker Past Alcohol Use History: None Reported Past Drug Use History: None Reported - Past Family History Mother Family Medical History: Cancer Additional Family Medical History / Comment(s): uterine cancer General Exam - General Exam Comments Initial Comments: Physical Exam GENERAL: Patient is well-developed and well-nourished. Patient is nontoxic and well- hydrated and is in no distress. HENT: Normocephalic, Atraumatic. EYES: PERRL, EOMI PULMONARY: Unlabored respirations. No audible rales rhonchi or wheezing was noted. CARDIOVASCULAR: There is a regular rate and rhythm without any murmurs gallops or rubs. ABDOMEN: Soft and nontender with normal bowel sounds. SKIN: Skin is clear with no lesions or rashes and otherwise unremarkable. : Deferred NEUROLOGIC: Patient is alert and oriented x3. Moving all extremities spontaneously MUSCULOSKELETAL: Normal extremities with adequate strength and full range of motion. No lower extremity swelling or edema. No calf tenderness. PSYCHIATRIC: Normal psychiatric evaluation. Limitations: no limitations Course Vital Signs 08/31/19 09/01/19 23:27 02:29 Temperature 98.0 F Pulse Rate 75 80 Respiratory 20 18 Rate Blood Pressure 157/93 158/93 O2 Sat by Pulse 97 96 Oximetry Medical Decision Making - Medical Decision Making The patient was seen and evaluated history is obtained from the patient Labs were obtained and revealed hyperglycemia without evidence of ketoacidosis Appropriate site is healed dose of insulin was ordered and administered as well as IV fluids. Patient was reevaluated as feeling well and is comfortable with plan for discharge home and outpatient follow-up with her primary care doctor for discussion of change in the management of her diabetes with home meds. - Lab Data Result diagrams: 09/01/19 00:45 09/01/19 00:45 Lab Results 08/31/19 09/01/19 09/01/19 Range/Units 23:28 00:45 00:45 WBC 10.1 (3.8-10.6) k/uL RBC 4.45 (3.80-5.40) m/uL Hgb 13.0 (11.4-16.0) gm/dL Hct 39.8 (34.0-46.0) % MCV 89.3 (80.0-100.0) fL MCH 29.1 (25.0-35.0) pg MCHC 32.5 (31.0-37.0) g/dL RDW 12.9 (11.5-15.5) % Plt Count 225 (150-450) k/uL Neutrophils % 75 % Lymphocytes % 19 % Monocytes % 4 % Eosinophils % 0 % Basophils % 0 % Neutrophils # 7.6 (1.3-7.7) k/uL Lymphocytes # 1.9 (1.0-4.8) k/uL Monocytes # 0.4 (0-1.0) k/uL Eosinophils # 0.0 (0-0.7) k/uL Basophils # 0.0 (0-0.2) k/uL VBG pH (7.31-7.41) VBG pCO2 (37-51) mmHg VBG HCO3 (24-28) mmol/L Sodium 136 L (137-145) mmol/L Potassium 4.4 (3.5-5.1) mmol/L Chloride 101 (98-107) mmol/L Carbon Dioxide 29 (22-30) mmol/L Anion Gap 6 mmol/L BUN 21 H (7-17) mg/dL Creatinine 0.69 (0.52-1.04) mg/dL Est GFR (CKD-EPI)AfAm >90 (>60 ml/min/1.73 sqM) Est GFR (CKD-EPI)NonAf >90 (>60 ml/min/1.73 sqM) Glucose 323 H (74-99) mg/dL POC Glucose (mg/dL) 329 H (75-99) mg/dL POC Glu [employer] ID Joanne Woodruff Osmolality 308 H (280-301) mosm/kg Calcium 9.0 (8.4-10.2) mg/dL Total Bilirubin 0.3 (0.2-1.3) mg/dL AST 26 (14-36) U/L ALT 42 H (4-34) U/L Alkaline Phosphatase 152 H (38-126) U/L Total Protein 6.4 (6.3-8.2) g/dL Albumin 3.9 (3.5-5.0) g/dL Urine Color Urine Appearance (Clear) Urine pH (5.0-8.0) Ur Specific [place] (1.001-1.035) Urine Protein (Negative) Urine Glucose (UA) (Negative) Urine Ketones (Negative) Urine Blood (Negative) Urine Nitrite (Negative) Urine Bilirubin (Negative) Urine Urobilinogen (<2.0) mg/dL Ur Leukocyte Esterase (Negative) Urine RBC (0-5) /hpf Urine WBC (0-5) /hpf Ur Squamous Epith Cells (0-4) /hpf Urine Bacteria (None) /hpf Urine Mucus (None) /hpf Acetone, Qual Negative (Negative) 09/01/19 09/01/19 09/01/19 Range/Units 02:00 02:00 02:55 WBC (3.8-10.6) k/uL RBC (3.80-5.40) m/uL Hgb (11.4-16.0) gm/dL Hct (34.0-46.0) % MCV (80.0-100.0) fL MCH (25.0-35.0) pg MCHC (31.0-37.0) g/dL RDW (11.5-15.5) % Plt Count (150-450) k/uL Neutrophils % % Lymphocytes % % Monocytes % % Eosinophils % % Basophils % % Neutrophils # (1.3-7.7) k/uL Lymphocytes # (1.0-4.8) k/uL Monocytes # (0-1.0) k/uL Eosinophils # (0-0.7) k/uL Basophils # (0-0.2) k/uL VBG pH 7.37 (7.31-7.41) VBG pCO2 45 (37-51) mmHg VBG HCO3 26 (24-28) mmol/L Sodium (137-145) mmol/L Potassium (3.5-5.1) mmol/L Chloride (98-107) mmol/L Carbon Dioxide (22-30) mmol/L Anion Gap mmol/L BUN (7-17) mg/dL Creatinine (0.52-1.04) mg/dL Est GFR (CKD-EPI)AfAm (>60 ml/min/1.73 sqM) Est GFR (CKD-EPI)NonAf (>60 ml/min/1.73 sqM) Glucose (74-99) mg/dL POC Glucose (mg/dL) 287 H (75-99) mg/dL POC Glu [employer] ID Joanne Woodruff Osmolality ([phone]) mosm/kg Calcium (8.4-10.2) mg/dL Total Bilirubin (0.2-1.3) mg/dL AST (14-36) U/L ALT (4-34) U/L Alkaline Phosphatase (38-126) U/L Total Protein (6.3-8.2) g/dL Albumin (3.5-5.0) g/dL Urine Color Yellow Urine Appearance Cloudy H (Clear) Urine pH 6.0 (5.0-8.0) Ur Specific [place] 1.030 (1.001-1.035) Urine Protein Negative (Negative) Urine Glucose (UA) 4+ H (Negative) Urine Ketones 1+ H (Negative) Urine Blood Negative (Negative) Urine Nitrite Positive H (Negative) Urine Bilirubin Negative (Negative) Urine Urobilinogen <2.0 (<2.0) mg/dL Ur Leukocyte Esterase Small H (Negative) Urine RBC 2 (0-5) /hpf Urine WBC 9 H (0-5) /hpf Ur Squamous Epith Cells 1 (0-4) /hpf Urine Bacteria Rare H (None) /hpf Urine Mucus Rare H (None) /hpf Acetone, Qual (Negative) Disposition Clinical Impression: Hyperglycemia, Hypertension Disposition: HOME SELF-CARE Condition: Stable Additional Instructions: Contact her primary care provider on Monday for follow-up to discuss changing diabetes medications a sugar sugars have been elevated Return to the ER if you have any worsening symptoms, any sugars that are sustained over 300 or develop any new or concerning symptoms Is patient prescribed a controlled substance at d/c from ED?: No Referrals: Cornell Lloyd MD [Primary Care Provider] - 1-2 days
[2019-09-01 02:50] VITALS: BP 158/93; PULSE 80; RESP 18
[2019-09-01 02:56] LABS: Appearance,Urine Cloudy (Clear); Bacteria,Urine Rare /hpf; Bilirubin,Urine Negative (Negative); Blood,Urine Negative (Negative); Color,Urine Yellow; Glucose,Urine (UA) 4+ (Negative); Ketones,Urine 1+ (Negative); Leukocyte Esterase,Urine Small (Negative); Mucus,Urine Rare /hpf; Nitrite,Urine Positive (Negative); Protein,Urine Negative (Negative); RBC,Urine 2 /hpf (0-5); Squamous Epithelial Cell,Urine 1 /hpf (0-4); Urobilinogen,Urine <2.0 mg/dL (<2.0); WBC,Urine 9 /hpf (0-5)
[2019-09-01 02:57] LABS: Glucose,Whole Blood 287 mg/dL (75-99)
== END 2019-09-01 03:14 | disposition home or self-care (01) ==
LOC: EC 23:11
DX: I10 Essential (primary) hypertension (principal); E11.65 Type 2 diabetes mellitus with hyperglycemia; I20.9 Angina pectoris, unspecified; E78.5 Hyperlipidemia, unspecified; G47.30 Sleep apnea, unspecified; F32.9 Major depressive disorder, single episode, unspecified; Z91.018 Allergy to other foods; Z91.048 Other nonmedicinal substance allergy status; Z79.1 Long term (current) use of non-steroidal anti-inflammatories (NSAID); Z79.4 Long term (current) use of insulin; Z79.82 Long term (current) use of aspirin; Z79.899 Other long term (current) drug therapy; Z99.89 Dependence on other enabling machines and devices
CPT/HCPCS: 36415; 80053; 81001; 82009; 82803; 83930; 85025; 87077; 87086; 87186; 96360; 96361; 99283

== ENCOUNTER → 2019-10-14 | Outpatient (CLI) | payer OTHER ==
[2019-10-14 11:06] LABS: Basophils # (A) 0.1 k/uL (0-0.2); Basophils % (A) 1 %; Eosinophils # (A) 0.3 k/uL (0-0.7); Eosinophils % (A) 4 %; HCT 42.3 % (34.0-46.0); HGB 13.8 gm/dL (11.4-16.0); Lymphocytes # (A) 1.6 k/uL (1.0-4.8); Lymphocytes % (A) 26 %; MCH 29.2 pg (25.0-35.0); MCHC 32.7 g/dL (31.0-37.0); MCV 89.2 fL (80.0-100.0); Mean Platelet Volume 8.3; Monocytes # (A) 0.3 k/uL (0-1.0); Monocytes % (A) 5 %; Neutrophils # (A) 3.8 k/uL (1.3-7.7); Neutrophils % (A) 63 %; Platelet Count 192 k/uL (150-450); RBC 4.74 m/uL (3.80-5.40); RDW 12.8 % (11.5-15.5); WBC 6.1 k/uL (3.8-10.6)
[2019-10-14 17:02] LABS: African American GFR (CKD) 112.3 (60.0-200.0); Albumin 4.2 g/dL (3.80-4.90); Albumin/Globulin Ratio 2.63 (1.60-3.17); Anion Gap 6.5 mmol/L (4.00-12.00); BUN/Creat Ratio 18.57 Ratio (12.00-20.00); Calcium 8.8 mg/dL (8.7-10.3); Carbon Dioxide 29.5 mmol/L (21.6-31.8); Chol/HDL Ratio 4.13; Globulin 1.6 g/dL (1.6-3.3); LDL Cholesterol,Calculated 58.6 mg/dL (0.0-131.0); Non-African American GFR(CKD) 96.9 (60.0-200.0); Potassium 5.3 mmol/L (3.5-5.5); Total Bilirubin 0.4 mg/dL (0.3-1.2); Total Protein 5.8 g/dL (6.2-8.2); VLDL Calculation 63.4 mg/dL (5.00-40.00)
[2019-10-14 18:58] LABS: Hemoglobin A1C 9.1 % (4.0-6.0)
== END | disposition home or self-care (01) ==
LOC: LABWHC1 10:23
PROVIDERS: ATTEND Family Medicine
DX: Z00.00 Encounter for general adult medical examination without abnormal findings (principal)
CPT/HCPCS: 36415; 80053; 80061; 82306; 83036; 85025

== ENCOUNTER → 2020-04-03 | Outpatient (CLI) | payer OTHER ==
[2020-04-03 15:31] LABS: African American GFR (CKD) 94.9 (60.0-200.0); Albumin 4.4 g/dL (3.80-4.90); Albumin/Globulin Ratio 2.1 (1.60-3.17); Anion Gap 6.7 mmol/L (4.00-12.00); BUN/Creat Ratio 18.75 Ratio (12.00-20.00); Calcium 9.6 mg/dL (8.7-10.3); Carbon Dioxide 29.3 mmol/L (21.6-31.8); Globulin 2.1 g/dL (1.6-3.3); Non-African American GFR(CKD) 81.8 (60.0-200.0); Potassium 4.8 mmol/L (3.5-5.5); Total Bilirubin 0.3 mg/dL (0.2-1.2); Total Protein 6.5 g/dL (6.2-8.2)
== END | disposition home or self-care (01) ==
LOC: LABWHC1 10:52
PROVIDERS: ATTEND Family Medicine
DX: R74.8 Abnormal levels of other serum enzymes (principal)
CPT/HCPCS: 36415; 80053

== ENCOUNTER → 2020-04-22 | Outpatient (CLI) | payer OTHER ==
[2020-04-22 16:26] LABS: Basophils # (A) 0.1 k/uL (0-0.2); Basophils % (A) 1 %; Eosinophils # (A) 0.3 k/uL (0-0.7); Eosinophils % (A) 3 %; HCT 45.5 % (34.0-46.0); HGB 14.4 gm/dL (11.4-16.0); Lymphocytes # (A) 2.7 k/uL (1.0-4.8); Lymphocytes % (A) 30 %; MCH 28.8 pg (25.0-35.0); MCHC 31.6 g/dL (31.0-37.0); MCV 91.1 fL (80.0-100.0); Mean Platelet Volume 8.1; Monocytes # (A) 0.4 k/uL (0-1.0); Monocytes % (A) 5 %; Neutrophils # (A) 5.2 k/uL (1.3-7.7); Neutrophils % (A) 60 %; Platelet Count 246 k/uL (150-450); RBC 4.99 m/uL (3.80-5.40); RDW 13.3 % (11.5-15.5); WBC 8.8 k/uL (3.8-10.6)
[2020-04-23 00:51] LABS: African American GFR (CKD) 94.9 (60.0-200.0); Albumin 4.5 g/dL (3.80-4.90); Albumin/Globulin Ratio 2.05 (1.60-3.17); Anion Gap 9.9 mmol/L (4.00-12.00); BUN/Creat Ratio 17.5 Ratio (12.00-20.00); Calcium 9.7 mg/dL (8.7-10.3); Carbon Dioxide 29.1 mmol/L (21.6-31.8); Globulin 2.2 g/dL (1.6-3.3); Non-African American GFR(CKD) 81.8 (60.0-200.0); Potassium 5.6 mmol/L (3.5-5.5); Total Bilirubin 0.3 mg/dL (0.2-1.2); Total Protein 6.7 g/dL (6.2-8.2)
== END | disposition home or self-care (01) ==
LOC: LABWHC1 15:19
PROVIDERS: ATTEND Family Medicine
DX: I10 Essential (primary) hypertension (principal)
CPT/HCPCS: 36415; 80053; 85025

== ENCOUNTER → 2020-04-24 | Outpatient (CLI) | payer OTHER ==
[2020-04-24 16:22] LABS: Basophils # (A) 0.1 k/uL (0-0.2); Basophils % (A) 1 %; Eosinophils # (A) 0.2 k/uL (0-0.7); Eosinophils % (A) 2 %; HCT 43.1 % (34.0-46.0); HGB 13.7 gm/dL (11.4-16.0); Lymphocytes # (A) 2.6 k/uL (1.0-4.8); Lymphocytes % (A) 26 %; MCHC 31.8 g/dL (31.0-37.0); MCV 91.3 fL (80.0-100.0); Mean Platelet Volume 7.8; Monocytes # (A) 0.5 k/uL (0-1.0); Monocytes % (A) 5 %; Neutrophils # (A) 6.5 k/uL (1.3-7.7); Neutrophils % (A) 65 %; Platelet Count 276 k/uL (150-450); RBC 4.72 m/uL (3.80-5.40)
[2020-04-24 23:55] LABS: African American GFR (CKD) 82.3 (60.0-200.0); Albumin 4.3 g/dL (3.80-4.90); Albumin/Globulin Ratio 2.15 (1.60-3.17); BUN/Creat Ratio 18.89 Ratio (12.00-20.00); Calcium 9.1 mg/dL (8.7-10.3); Potassium 4.7 mmol/L (3.5-5.5); Total Bilirubin 0.4 mg/dL (0.2-1.2); Total Protein 6.3 g/dL (6.2-8.2)
[2020-04-25 01:01] LABS: Hemoglobin A1C 9.6 % (4.0-6.0)
== END | disposition home or self-care (01) ==
LOC: LABWHC1 15:46
PROVIDERS: ATTEND Family Medicine
DX: E11.65 Type 2 diabetes mellitus with hyperglycemia (principal)
CPT/HCPCS: 36415; 80053; 83036; 85025

== ENCOUNTER → 2020-05-14 | Outpatient (CLI) | payer OTHER | END | disposition home or self-care (01) | LOC: LABWHC1 14:33 | PROVIDERS: ATTEND Internal Medicine Critical Care Medicine | DX: J45.909 Unspecified asthma, uncomplicated (principal) | CPT/HCPCS: 36415; 82785; 85008 ==

== ENCOUNTER → 2020-07-29 | Outpatient (CLI) | payer OTHER ==
[2020-07-29 16:53] LABS: Basophils # (A) 0.1 k/uL (0-0.2); Basophils % (A) 1 %; Eosinophils # (A) 0.2 k/uL (0-0.7); Eosinophils % (A) 3 %; HCT 39.2 % (34.0-46.0); HGB 13.2 gm/dL (11.4-16.0); Lymphocytes # (A) 1.8 k/uL (1.0-4.8); Lymphocytes % (A) 26 %; MCH 30.8 pg (25.0-35.0); MCHC 33.7 g/dL (31.0-37.0); MCV 91.3 fL (80.0-100.0); Mean Platelet Volume 7.7; Monocytes # (A) 0.3 k/uL (0-1.0); Monocytes % (A) 5 %; Neutrophils # (A) 4.5 k/uL (1.3-7.7); Neutrophils % (A) 64 %; Platelet Count 211 k/uL (150-450); RDW 12.6 % (11.5-15.5)
[2020-07-30 01:39] LABS: Hemoglobin A1C 8.6 % (4.0-6.0)
[2020-07-30 01:45] LABS: African American GFR (CKD) 111.5 (60.0-200.0); Albumin 4.4 g/dL (3.80-4.90); Albumin/Globulin Ratio 2.44 (1.60-3.17); Anion Gap 8.6 mmol/L (4.00-12.00); BUN/Creat Ratio 27.14 Ratio (12.00-20.00); Calcium 9.2 mg/dL (8.7-10.3); Carbon Dioxide 27.4 mmol/L (21.6-31.8); Globulin 1.8 g/dL (1.6-3.3); Non-African American GFR(CKD) 96.2 (60.0-200.0); Total Bilirubin 0.3 mg/dL (0.3-1.2); Total Protein 6.2 g/dL (6.2-8.2)
== END | disposition home or self-care (01) ==
LOC: LABWHC1 15:28
PROVIDERS: ATTEND Family Medicine
DX: E11.9 Type 2 diabetes mellitus without complications (principal)
CPT/HCPCS: 36415; 80053; 83036; 85025

== ENCOUNTER → 2020-08-26 | Outpatient (CLI) | payer OTHER ==
[2020-08-27 07:34] LABS: Hepatitis A Antibody IgM Non-Reactive (Non-Reactive); Hepatitis B Core IgM Non-Reactive (Non-Reactive); Hepatitis B Surface Antigen Non-Reactive (Non-Reactive); Hepatitis C IgG Antibody Non-Reactive (Non-Reactive)
--- NOTE | 2020-08-31 11:31 | MM ---
Reason for exam: screening (asymptomatic). Last mammogram was performed 1 year and 3 months ago. History: Patient is postmenopausal. Took hormonal contraceptives for 28 years beginning at age 18. Physical Findings: A clinical breast exam by your physician is recommended on an annual basis and results should be correlated with mammographic findings. MG Screening Mammo w CAD Bilateral CC, MLO, and XCCL view(s) were taken. Prior study comparison: May 23, 2019, bilateral MG screening mammo w CAD. May 22, 2018, bilateral MG screening mammo w CAD. There are scattered fibroglandular densities. No significant changes when compared with prior studies. ASSESSMENT: Benign, BI-RAD 2 RECOMMENDATION: Routine screening mammogram of both breasts in 1 year.
== END | disposition home or self-care (01) ==
LOC: RADMAMWWP 15:51
PROVIDERS: ATTEND Family Medicine
DX: Z12.31 Encounter for screening mammogram for malignant neoplasm of breast (principal); R74.8 Abnormal levels of other serum enzymes
CPT/HCPCS: 77067; 80074

== ENCOUNTER → 2020-08-31 | Outpatient (CLI) | payer OTHER ==
--- NOTE | 2020-08-31 08:46 | US ---
EXAMINATION TYPE: US liver DATE OF EXAM: 08/31/2020 COMPARISON: NONE CLINICAL HISTORY: 55-year-old female R74.8 Abnormal levels of other serum enzymes. TECHNIQUE: Multiple sonographic images of the right upper quadrant are obtained. FINDINGS: EXAM MEASUREMENTS: Liver Length: 21.6 cm Gallbladder Wall: 0.2 cm CBD: 0.4 cm Right Kidney: 12.2 x 5.0 x 4.9 cm Truck Technician notes: Morbidly obese patient. Pancreas: Head partially obscured by bowel gas. Visualized portions show no gross abnormality Liver: Echogenic, slightly attenuating, enlarged. No focal lesion seen. Gallbladder: wnl Evidence for sonographic Gomez's sign: no CBD: wnl Right Kidney: No hydronephrosis. IMPRESSION: 1. Hepatomegaly (21.6 cm) with at least moderate hepatic steatosis. 2. No gallstones or biliary ductal dilatation.
== END | disposition home or self-care (01) ==
LOC: RADUSWWP 06:57
PROVIDERS: ATTEND Family Medicine
DX: K76.0 Fatty (change of) liver, not elsewhere classified (principal)
CPT/HCPCS: 76705

== ENCOUNTER → 2021-02-01 | Outpatient (CLI) | payer OTHER ==
[2021-02-01 23:20] LABS: Basophils # (A) 0.05 X 10*3/uL (0.00-0.10); Basophils % (A) 0.5 %; Eosinophils % (A) 0.9 %; HGB 14.3 g/dL (12.0-15.0); Lymphocytes # (A) 2.95 X 10*3/uL (0.90-5.00); MCH 28.3 pg (27.0-32.0); MCHC 31.1 g/dL (32.0-37.0); MCV 90.9 fL (80.0-97.0); Mean Platelet Volume 11.5 fL (9.5-12.2); Monocytes % (A) 7.3 %; Neutrophils % (A) 63.9 %; Platelet Count 269 X 10*3/uL (140-440); RBC 5.06 X 10*6/uL (4.10-5.20); WBC 10.94 X 10*3/uL (4.50-10.00)
[2021-02-02 01:49] LABS: African American GFR (CKD) 82.3 (60.0-200.0); Albumin 4.8 g/dL (3.80-4.90); Albumin/Globulin Ratio 2.09 (1.60-3.17); Anion Gap 9.8 mmol/L (4.00-12.00); Calcium 10.5 mg/dL (8.7-10.3); Carbon Dioxide 28.2 mmol/L (21.6-31.8); Globulin 2.3 g/dL (1.6-3.3); Potassium 5.1 mmol/L (3.5-5.5); Total Bilirubin 0.5 mg/dL (0.2-1.2); Total Protein 7.1 g/dL (6.2-8.2)
== END | disposition home or self-care (01) ==
LOC: LABWHC1 12:14
PROVIDERS: ATTEND Family Medicine
DX: E11.65 Type 2 diabetes mellitus with hyperglycemia (principal); I10 Essential (primary) hypertension
CPT/HCPCS: 36415; 80053; 83036; 85025

== ENCOUNTER 2021-05-12 02:07 | Observation (INO) | payer OTHER ==
[2021-05-12] MEDS ORDERED: SODIUM CHLORIDE 0.9% 500 ML 500 ML IV STA (02:25)
[2021-05-12] MEDS ORDERED: SODIUM CHLORIDE 0.9% 1,000 ML IV STA (02:25)
[2021-05-12] MEDS ORDERED: ONDANSETRON 4 MG/2 ML VIAL IVP STA (02:30)
[2021-05-12] MEDS ORDERED: LORazepam 2 MG/ML INJ IV STA (02:30)
--- NOTE | 2021-05-12 02:36 | ED ---
Weakness HPI - General Stated complaint: Dizziness Time Seen by Provider: 05/12/21 02:21 - Related Data Home Medications Medication Instructions Recorded Confirmed Aspirin 81 mg PO DAILY 12/25/13 08/02/19 Atorvastatin [Lipitor] 20 mg PO DAILY 12/25/13 08/02/19 Butalb/Acetaminophen/Caffeine 1 tab PO Q8H PRN 12/25/13 08/02/19 [Fioricet 50-325-40 mg Tablet] Citalopram Hydrobromide 40 mg PO DAILY 12/25/13 08/02/19 [Citalopram HBr] Gabapentin [Neurontin] 600 mg PO TID 12/25/13 08/02/19 lisinopriL [Zestril] 2.5 mg PO AC-SUPPER 12/25/13 08/02/19 metFORMIN HCL [metFORMIN HCL ER] 500 mg PO BID 12/25/13 08/02/19 HYDROcodone/APAP 5-325MG [[place] 1 tab PO DAILY PRN 12/26/13 08/02/19 5-325] Verapamil HCl [Verapamil ER] 120 mg PO AC-SUPPER 12/26/13 08/02/19 Cholecalciferol (Vitamin D3) 2,000 unit PO DAILY 08/30/17 08/02/19 [Vitamin D3] Multivitamins, Thera [Multivitamin 1 tab PO DAILY 06/25/18 08/02/19 (formulary)] Ibuprofen 800 mg PO TID 08/02/19 08/02/19 Insulin Glargine,Hum.rec.anlog 15 unit SQ HS 08/02/19 08/02/19 [Basaglar Kwikpen U-100] Allergies Allergy/AdvReac Type Severity Reaction Status Date / Time peach Allergy Rash/Hives Verified 08/31/19 23:29 poison oak extract Allergy Rash/Hives Verified 08/31/19 23:29 wool Allergy Rash/Hives Verified 08/31/19 23:29 poison farhat extract AdvReac Rash/Hives Verified 08/31/19 23:29 Review of Systems ROS Statement: Those systems with pertinent positive or pertinent negative responses have been documented in the HPI. ROS Other: All systems not noted in ROS Statement are negative. Past Medical History Past Medical History: Chest Pain / Angina, Diabetes Mellitus, GERD/Reflux, Hyperlipidemia, Hypertension, Sleep Apnea/CPAP/BIPAP Additional Past Medical History / Comment(s): CHEST PAIN RADIATING DOWN LEFT ARM INTERMITT.,SOB W/ ACTIVITY,cpap machine History of Any Multi-Drug Resistant Organisms: ESBL Date of last positivie culture/infection: 09/01/19 MDRO Source:: ESBL URINE Past Surgical History: Section, Tubal Ligation Additional Past Surgical History / Comment(s): 01/06/2016 - hysteroscopy with dilation and curretage. 2 cysts removed. left arm mass removed. 18 Years old, laser surgery to have cysts removed. Past Anesthesia/Blood Transfusion Reactions: No Reported Reaction Past Psychological History: Depression Past Alcohol Use History: None Reported Past Drug Use History: None Reported - Past Family History Mother Family Medical History: Cancer Additional Family Medical History / Comment(s): uterine cancer EKG Findings - EKG Comments: EKG Findings:: EKG shows sinus 75 WV 150 QRS 82 QTC 429 Disposition Referrals: Cornell Lloyd MD [Primary Care Provider] - 1-2 days
[2021-05-12 03:13] LABS: Basophils % (A) 0 %; Eosinophils # (A) 0.2 k/uL (0-0.7); Eosinophils % (A) 3 %; HCT 39.9 % (34.0-46.0); Lymphocytes # (A) 2.6 k/uL (1.0-4.8); Lymphocytes % (A) 29 %; MCH 30.4 pg (25.0-35.0); MCHC 35.1 g/dL (31.0-37.0); MCV 86.6 fL (80.0-100.0); Mean Platelet Volume 8.6; Monocytes # (A) 0.4 k/uL (0-1.0); Monocytes % (A) 4 %; Neutrophils # (A) 5.4 k/uL (1.3-7.7); Neutrophils % (A) 62 %; Platelet Count 250 k/uL (150-450); RBC 4.61 m/uL (3.80-5.40); RDW 13.5 % (11.5-15.5); WBC 8.8 k/uL (3.8-10.6)
--- NOTE | 2021-05-12 03:41 | XR ---
EXAMINATION TYPE: XR chest 2V DATE OF EXAM: 05/12/2021 COMPARISON: November 27, 2013 HISTORY: Weakness TECHNIQUE: FINDINGS: Heart and mediastinum are normal. Lungs are clear. Diaphragm is normal. Bony thorax is inta ct. There are chest leads. IMPRESSION: Normal chest. No change.
[2021-05-12 03:43] LABS: ALT 28 U/L (4-34); AST 27 U/L (14-36); African American GFR (CKD) >90 (>60 ml/min/1.73 sqM); Albumin 3.9 g/dL (3.5-5.0); Alkaline Phosphatase 127 U/L (38-126); Anion Gap 10 mmol/L; Blood Urea Nitrogen 11 mg/dL (7-17); Calcium 9.4 mg/dL (8.4-10.2); Carbon Dioxide 23 mmol/L (22-30); Chloride 107 mmol/L (98-107); Creatine Kinase 55 U/L (30-135); Glucose 118 mg/dL (74-99); Lipase 99 U/L (23-300); Magnesium 1.7 mg/dL (1.6-2.3); Non-African American GFR(CKD) >90 (>60 ml/min/1.73 sqM); Phosphorus 2.9 mg/dL (2.5-4.5); Potassium 4.1 mmol/L (3.5-5.1); Sodium 140 mmol/L (137-145); Total Bilirubin 0.4 mg/dL (0.2-1.3); Total Protein 6.3 g/dL (6.3-8.2)
[2021-05-12 03:59] LABS: INR 0.9 (<1.2); Partial Thromboplastin Time 22.3 sec (22.0-30.0); Prothrombin Time 10.2 sec (9.0-12.0)
[2021-05-12] MEDS ORDERED: IPRATROPIUM-ALBUTEROL 3 ML NEB INHALATION PRN (04:32)
[2021-05-12] MEDS ORDERED: NALOXONE 0.4 MG/ML 1 ML VIAL IV PRN (04:32)
[2021-05-12] MEDS ORDERED: LORazepam 2 MG/ML INJ IV PRN (04:32)
[2021-05-12] MEDS ORDERED: ONDANSETRON 4 MG/2 ML VIAL IVP PRN (04:32)
[2021-05-12] MEDS ORDERED: MORPHINE SULFATE 4 MG/ML SYRINGE IV PRN (04:32)
[2021-05-12] MEDS ORDERED: SODIUM CHLORIDE 0.9% 1,000 ML IV SCH (04:45)
[2021-05-12] MEDS: SODIUM CHLORIDE 0.9% 1,000 ML IV SCH (04:50)
[2021-05-12] MEDS: methylPREDNISolone SOD SUCCI 125 MG/2 ML VIAL IV SCH ×2 (06:06→12:09)
[2021-05-12 06:34] LABS: Glucose,Whole Blood 111 mg/dL (75-99)
[2021-05-12] MEDS: PANTOPRAZOLE 40 MG/10 ML VIAL IV SCH (07:43)
[2021-05-12] MEDS: IPRATROPIUM-ALBUTEROL 3 ML NEB INHALATION SCH ×3 (08:23→19:43)
[2021-05-12 08:25] LABS: Amorphous Sediment,Urine Rare /hpf; Appearance,Urine Cloudy (Clear); Bacteria,Urine Occasional /hpf; Bilirubin,Urine Negative (Negative); Blood,Urine Negative (Negative); Color,Urine Yellow; Glucose,Urine (UA) Negative (Negative); Ketones,Urine 1+ (Negative); Leukocyte Esterase,Urine Moderate (Negative); Mucus,Urine Moderate /hpf; Nitrite,Urine Positive (Negative); PH, Urine 6.5 (5.0-8.0); Protein,Urine Trace (Negative); Specific Gravity,Urine 1.024 (1.001-1.035); Squamous Epithelial Cell,Urine 5 /hpf (0-4); Urobilinogen,Urine <2.0 mg/dL (<2.0); WBC,Urine 21 /hpf (0-5)
[2021-05-12] MEDS: INSULIN ASPART (NovoLOG) 100 UNIT/ML VIAL SQ SCH ×4 (08:29→21:22)
--- NOTE | 2021-05-12 08:32 | P.CRDCN ---
History of Present Illness Consult date: 05/12/21 Chief complaint: Chest pain History of present illness: This is a very pleasant 56-year-old female patient with a past medical history significant for diabetes and hypertension and dyslipidemia who we consulted to see for chest discomfort. She describes intermittent episodes of chest discomfort in the middle of the chest as a sharp kind of discomfort without any radiation to the arms or neck or shoulders or back and without any associated s ymptoms. She denies any shortness of breath or dizziness or lightheadedness or sweating or any feeling of heart racing or fluttering or presyncope or syncope. Her EKG showed sinus rhythm without any significant ST or T-wave abnormalities. The blood work came in to be unremarkable. The troponin came in to be unremarkable. The chest x-ray did not show any acute abnormalities. On examination she does have mild bilateral expiratory wheezing and she stated that she does have asthma. She is slightly tachycardic but she is not hypoxic. She underwent a heart catheterization in 2013 and that showed mild nonobstructive coronary artery disease. The last echo was from 2017 and that revealed normal left ventricular systolic function was moderate MR and mild TR Past Medical History Past Medical History: Chest Pain / Angina, Diabetes Mellitus, GERD/Reflux, Hyperlipidemia, Hypertension, Sleep Apnea/CPAP/BIPAP Additional Past Medical History / Comment(s): CHEST PAIN RADIATING DOWN LEFT ARM INTERMITT.,SOB W/ ACTIVITY,cpap machine History of Any Multi-Drug Resistant Organisms: ESBL Date of last positivie culture/infection: 09/01/19 MDRO Source:: ESBL URINE Past Surgical History: Section, Tubal Ligation Additional Past Surgical History / Comment(s): 01/06/2016 - hysteroscopy with dilation and curretage. 2 cysts removed. left arm mass removed. 18 Years old, laser surgery to have cysts removed. Past Anesthesia/Blood Transfusion Reactions: No Reported Reaction Past Psychological History: Depression Smoking Status: Never smoker Past Alcohol Use History: None Reported Past Drug Use History: None Reported - Past Family History Mother Family Medical History: Cancer Additional Family Medical History / Comment(s): uterine cancer Medications and Allergies Home Medications Medication Instructions Recorded Confirmed Type Aspirin 81 mg PO DAILY 12/25/13 08/02/19 History Atorvastatin [Lipitor] 20 mg PO DAILY 12/25/13 08/02/19 History Butalb/Acetaminophen/Caffeine 1 tab PO Q8H PRN 12/25/13 08/02/19 History [Fioricet 50-325-40 mg Tablet] Citalopram Hydrobromide 40 mg PO DAILY 12/25/13 08/02/19 History [Citalopram HBr] Gabapentin [Neurontin] 600 mg PO TID 12/25/13 08/02/19 History lisinopriL [Zestril] 2.5 mg PO AC-SUPPER 12/25/13 08/02/19 History metFORMIN HCL [metFORMIN HCL ER] 500 mg PO BID 12/25/13 08/02/19 History HYDROcodone/APAP 5-325MG [[place] 1 tab PO DAILY PRN 12/26/13 08/02/19 History 5-325] Verapamil HCl [Verapamil ER] 120 mg PO AC-SUPPER 12/26/13 08/02/19 History Cholecalciferol (Vitamin D3) 2,000 unit PO DAILY 08/30/17 08/02/19 History [Vitamin D3] Multivitamins, Thera [Multivitamin 1 tab PO DAILY 06/25/18 08/02/19 History (formulary)] Ibuprofen 800 mg PO TID 08/02/19 08/02/19 History Insulin Glargine,Hum.rec.anlog 15 unit SQ HS 08/02/19 08/02/19 History [Basaglar Kwikpen U-100] Allergies Allergy/AdvReac Type Severity Reaction Status Date / Time peach Allergy Rash/Hives Verified 08/31/19 23:29 poison oak extract Allergy Rash/Hives Verified 08/31/19 23:29 wool Allergy Rash/Hives Verified 08/31/19 23:29 poison farhat extract AdvReac Rash/Hives Verified 08/31/19 23:29 Physical Exam Vitals: Vital Signs Temp Pulse Pulse Resp BP BP Pulse Ox 05/12/21 05:03 95 18 140/81 99 05/12/21 04:58 98 F 83 22 125/81 98 05/12/21 04:15 88 20 134/72 94 L 05/12/21 03:13 89 20 121/74 97 05/12/21 02:07 98.2 F 96 20 133/81 97 Intake and Output 05/11/21 05/12/21 05/12/21 22:59 06:59 14:59 Other: Voiding Method Toilet Weight 118.68 kg - Constitutional General appearance: no acute distress - Respiratory Respiratory: bilateral: wheezing - Cardiovascular Rhythm: regular Heart sounds: normal: S1, S2 Results 05/12/21 02:50 05/12/21 02:50 Cardiac Enzymes 05/12/21 05/12/21 05/12/21 Range/Units 02:50 02:50 05:56 AST 27 (14-36) U/L Troponin I <0.012 <0.012 (0.000-0.034) ng/mL Coagulation 05/12/21 Range/Units 02:50 PT 10.2 (9.0-12.0) sec APTT 22.3 (22.0-30.0) sec CBC 05/12/21 Range/Units 02:50 WBC 8.8 (3.8-10.6) k/uL RBC 4.61 (3.80-5.40) m/uL Hgb 14.0 (11.4-16.0) gm/dL Hct 39.9 (34.0-46.0) % Plt Count 250 (150-450) k/uL Comprehensive Metabolic Panel 05/12/21 Range/Units 02:50 Sodium 140 (137-145) mmol/L Potassium 4.1 (3.5-5.1) mmol/L Chloride 107 (98-107) mmol/L Carbon Dioxide 23 (22-30) mmol/L BUN 11 (7-17) mg/dL Creatinine 0.61 (0.52-1.04) mg/dL Glucose 118 H (74-99) mg/dL Calcium 9.4 (8.4-10.2) mg/dL AST 27 (14-36) U/L ALT 28 (4-34) U/L Alkaline Phosphatase 127 H (38-126) U/L Total Protein 6.3 (6.3-8.2) g/dL Albumin 3.9 (3.5-5.0) g/dL Current Medications Generic Name Dose Route Start Last Admin Trade Name Freq PRN Reason Stop Dose Admin Albuterol/Ipratropium 3 ml 05/12/21 04:32 Ipratropium-Albuterol 3 Ml Neb INHALATION RT-Q4H PRN Shortness Of Breath Or Wheezing Albuterol/Ipratropium 3 ml 05/12/21 08:00 05/12/21 08:23 Ipratropium-Albuterol 3 Ml Neb INHALATION Not Given RT-Q6H RACHEL Sodium Chloride 1,000 mls @ 130 mls/hr 05/12/21 02:25 05/12/21 03:05 Saline 0.9% IV 05/12/21 10:06 130 mls/hr .Q7H42M STA Administration Sodium Chloride 1,000 mls @ 100 mls/hr 05/12/21 04:45 05/12/21 04:50 Saline 0.9% IV 100 mls/hr .Q10H RACHEL Administration Insulin Aspart 0 unit 05/12/21 07:30 05/12/21 08:29 Insulin Aspart (Novolog) 100 Unit/Ml Vial SQ Not Given ACHS RACHEL Protocol Lorazepam 0.5 mg 05/12/21 04:32 Lorazepam 2 Mg/Ml Inj IV Q6HR PRN Anxiety Methylprednisolone Sodium Succinate 60 mg 05/12/21 06:00 05/12/21 06:06 Methylprednisolone Sod Succi 125 Mg/2 Ml Vial IV 60 mg Q6HR RACHEL Administration Morphine Sulfate 4 mg 05/12/21 04:32 Morphine Sulfate 4 Mg/Ml Syringe IV Q4HR PRN Severe Pain Naloxone HCl 0.2 mg 05/12/21 04:32 Naloxone 0.4 Mg/Ml 1 Ml Vial IV Q2M PRN Opioid Reversal Ondansetron HCl 4 mg 05/12/21 04:32 Ondansetron 4 Mg/2 Ml Vial IVP Q8HR PRN Nausea And Vomiting Pantoprazole Sodium 40 mg 05/12/21 09:00 05/12/21 07:43 Pantoprazole 40 Mg/10 Ml Vial IV 40 mg DAILY RACHEL Administration Intake and Output 05/11/21 05/12/21 05/12/21 22:59 06:59 14:59 Other: Voiding Method Toilet Weight 118.68 kg 05/12/21 02:50 05/12/21 02:50 Assessment and Plan Assessment: Assessment #1 atypical chest discomfort #2 diabetes type 2 #3 hypertension #4 dyslipidemia Plan #1 acute coronary event was ruled out. 2 sets of troponin came in to be unremarkable #2 and going to rule out PE. D-dimer to be drawn later on #3 if the d-dimer is negative the patient will benefit from dobutamine stress echocardiogram. Unfortunately she cannot walk on the treadmill because of lower extremities arthritis #4 follow-up with the patient
[2021-05-12] MEDS ORDERED: DOBUTamine DRIP for NUC MED 500 MG in DEXTROSE/WATER 1 250ML.BAG IV PRN (09:14)
[2021-05-12 12:00] LABS: Glucose,Whole Blood 165 mg/dL (75-99)
[2021-05-12 12:42] LABS: Hemoglobin A1C 6.7 % (4.0-6.0)
--- NOTE | 2021-05-12 15:45 | P.HPIM ---
History of Present Illness H&P Date: 05/12/21 This is a pleasant 56-year-old female who came in with chest pain and feelings of dizziness and weakness. Patient reports to having some nausea and vomiting 1 day prior to presentation to emergency department. Patient does have a past medical history of angina diabetes mellitus, GERD, hyperlipidemia, hypertension, sleep apnea and uses a CPAP at home. Patient reports to no smoking and states she uses an inhaler. Eyes any history of COPD and states she has seen a pulmonary doctor in the outpatient setting although unsure of who it was. Patient also reports seeing cardiology in the outpatient setting although cannot recall the name. She denies any recent sick contacts and reports being v accinated for Covid 19. Patient states that her chest pain is sharp and stabbing in nature and centrally located and denies any radiation to the arm or back. Patient states it had been ongoing a few days prior to presentation to the ER. Urology has been consulted and pending. Chest x-ray showed a normal chest and was placed on supplemental oxygen at 2 L although denies any shortness of breath and does not use oxygen at the home setting. Will Discontinue oxygen and continue with breathing treatments as needed. Patient does have a inhaler at the bedside that she states she uses as needed. She was also started on IV steroids with minimal wheezing noted on exam and will decrease the dose and monitor closely. Accu-Cheks and sliding scale for now. EKG shows normal sinus rhythm and troponins have been negative. Review of Systems Constitutional: Reports poor appetite, Denies chills, Denies fever Ears, nose, mouth and throat: Denies headache, Denies sore throat Cardiovascular: Reports chest pain, Reports dyspnea on exertion, Reports lightheadedness Respiratory: Reports sleep apnea, Reports wheezing Gastrointestinal: Reports nausea, Reports vomiting Genitourinary: Denies dysuria, Denies hematuria Integumentary: Denies pruritus, Denies rash Neurological: Reports weakness Psychiatric: Denies anxiety, Denies depression Past Medical History Past Medical History: Chest Pain / Angina, Diabetes Mellitus, GERD/Reflux, Hyperlipidemia, Hypertension, Sleep Apnea/CPAP/BIPAP Additional Past Medical History / Comment(s): CHEST PAIN RADIATING DOWN LEFT ARM INTERMITT.,SOB W/ ACTIVITY,cpap machine History of Any Multi-Drug Resistant Organisms: ESBL Date of last positivie culture/infection: 1/5/20 MDRO Source:: ESBL URINE Past Surgical History: Section, Tubal Ligation Additional Past Surgical History / Comment(s): 01/06/2016 - hysteroscopy with dilation and curretage. 2 cysts removed. left arm mass removed. 18 Years old, laser surgery to have cysts removed. Past Anesthesia/Blood Transfusion Reactions: No Reported Reaction Past Psychological History: Depression Smoking Status: Never smoker Past Alcohol Use History: None Reported Past Drug Use History: None Reported - Past Family History Mother Family Medical History: Cancer Additional Family Medical History / Comment(s): uterine cancer Medications and Allergies Home Medications Medication Instructions Recorded Confirmed Type Atorvastatin [Lipitor] 20 mg PO HS 12/25/13 05/12/21 History Butalb/Acetaminophen/Caffeine 1 tab PO DAILY PRN 12/25/13 05/12/21 History [Fioricet 50-325-40 mg Tablet] Citalopram Hydrobromide 40 mg PO DAILY 12/25/13 05/12/21 History [Citalopram HBr] Gabapentin [Neurontin] 600 mg PO TID 12/25/13 05/12/21 History lisinopriL [Zestril] 2.5 mg PO DAILY 12/25/13 05/12/21 History HYDROcodone/APAP 5-325MG [[place] 1 tab PO DAILY PRN 12/26/13 05/12/21 History 5-325] Verapamil HCl [Verapamil ER] 120 mg PO DAILY 12/26/13 05/12/21 History Cholecalciferol (Vitamin D3) 50 mcg PO BID 08/30/17 05/12/21 History [Vitamin D3] Ibuprofen 800 mg PO TID PRN 08/02/19 05/12/21 History Albuterol Sulfate [Proair Hfa] 2 puff INHALATION RT-QID PRN 05/12/21 05/12/21 History Budesonide/Formoterol Fumarate 2 puff INHALATION RT-BID 05/12/21 05/12/21 History [Symbicort 160-4.5 Mcg Inhaler] Insulin Aspart [NovoLOG Flexpen] 6 units SQ AC-TID 05/12/21 05/12/21 History Insulin Glargine,Hum.rec.anlog 32 unit SQ HS 05/12/21 05/12/21 History [Lantus Solostar Pen] Montelukast [Singulair] 10 mg PO DAILY 05/12/21 05/12/21 History Ozempic 2mg/1.5ml 0.25 mg SQ TU 05/12/21 05/12/21 History metFORMIN HCL ER [Glucophage XR] 1,000 mg PO BID 05/12/21 05/12/21 History Allergies Allergy/AdvReac Type Severity Reaction Status Date / Time peach Allergy Rash/Hives Verified 05/12/21 08:45 poison farhat extract Allergy Rash/Hives Verified 05/12/21 08:45 poison oak extract Allergy Rash/Hives Verified 05/12/21 08:45 wool Allergy Rash/Hives Verified 05/12/21 08:45 Physical Exam Vitals: Vital Signs Temp Pulse Pulse Resp BP BP Pulse Ox 05/12/21 07:00 98.1 F 84 20 127/84 05/12/21 05:03 95 18 140/81 99 05/12/21 04:58 98 F 83 22 125/81 98 05/12/21 04:15 88 20 134/72 94 L 05/12/21 03:13 89 20 121/74 97 05/12/21 02:07 98.2 F 96 20 133/81 97 Intake and Output 05/11/21 05/12/21 05/12/21 22:59 06:59 14:59 Other: Voiding Method Toilet Weight 118.68 kg Gen: This is a 56-year-old female lethargic although arousable, alert and oriented 3, well-developed, and well-nourished, morbidly obese HEENT: Head is atraumatic, normocephalic. Pupils equal, round. Sclerae is anicteric. NECK: Supple. No JVD. No lymphadenopathy. No thyromegaly. LUNGS: Diminished breath sounds bilaterally with some faint expiratory wheezing noted HEART: Regular rate and rhythm. No murmur. ABDOMEN: Soft. Obese. Bowel sounds are present. No masses. No tenderness. EXTREMITIES: No pedal edema. No calf tenderness. NEUROLOGICAL: Patient is asleep although easily arousable, alert and oriented x3. Cranial nerves 2 through 12 are grossly intact. Results CBC & Chem 7: 05/12/21 02:50 05/12/21 02:50 Labs: Abnormal Lab Results - Last 24 Hours (Table) 09/05/12/21 05/12/21 Range/Units 02:50 06:33 08:10 Glucose 118 H (74-99) mg/dL POC Glucose (mg/dL) 111 H (75-99) mg/dL Alkaline Phosphatase 127 H (38-126) U/L Urine Appearance Cloudy H (Clear) Urine Protein Trace H (Negative) Urine Ketones 1+ H (Negative) Urine Nitrite Positive H (Negative) Ur Leukocyte Esterase Moderate H (Negative) Urine WBC 21 H (0-5) /hpf Ur Squamous Epith Cells 5 H (0-4) /hpf Amorphous Sediment Rare H (None) /hpf Urine Bacteria Occasional H (None) /hpf Urine Mucus Moderate H (None) /hpf Assessment and Plan Assessment: Chest pain, rule out ACS Dizziness and weakness Nausea and vomiting possibly secondary to above Diabetes mellitus type 2 Possible acute urinary tract infection, present on admission most likely asymptomatic bacteriuria as patient is not having any symptoms and patient is afebrile Gastroesophageal reflux disease Hyperlipidemia Hypertension History of asthma Sleep apnea uses CPAP machine at night GI prophylaxis DVT prophylaxis full Code Plan: Recommend cardiology consultation and plan is for stress echo test today Dr. Vazquez. Resume appropriate home medications and monitor for diet tolerance. Patient denies any further episodes of nausea or vomiting and is tolerating diet . Recommend continue with Accu-Cheks before meals and at bedtime and will continue with sliding scale. Patient was started on IV steroids with minimal wheezing noted on exam and will decrease the dose and possibly discontinue tomorrow. Continue with breathing treatments as needed. She did have u rinalysis done which was positive for nitrates and leukocyte esterase which is most likely asymptomatic bacteriuria and will not require antibiotics and will follow the culture as patient denies having any burning, frequency, pain with urination. Encouraged increased activity and wean FiO2 as tolerated as patient was on 2 L with 98% oxygen saturation. Will await stress test with possible discharge in 24 hours. Time with Patient: Greater than 30
[2021-05-12 17:39] LABS: Glucose,Whole Blood 192 mg/dL (75-99)
[2021-05-12] MEDS ORDERED: ACETAMINOPHEN TAB 325 MG TAB PO PRN (18:28)
[2021-05-12 21:15] LABS: Glucose,Whole Blood 161 mg/dL (75-99)
[2021-05-12] MEDS: methylPREDNISolone SOD SUCCI 40 MG/ML 1 ML VIAL IV SCH (21:23)
[2021-05-13] MEDS: IPRATROPIUM-ALBUTEROL 3 ML NEB INHALATION SCH ×3 (00:12→11:39)
[2021-05-13 05:55] LABS: Basophils % (A) 0 %; Eosinophils # (A) 0.1 k/uL (0-0.7); Eosinophils % (A) 1 %; HCT 40.2 % (34.0-46.0); HGB 13.1 gm/dL (11.4-16.0); Lymphocytes # (A) 1.4 k/uL (1.0-4.8); Lymphocytes % (A) 16 %; MCH 30.2 pg (25.0-35.0); MCHC 32.5 g/dL (31.0-37.0); Mean Platelet Volume 8.6; Monocytes # (A) 0.3 k/uL (0-1.0); Monocytes % (A) 4 %; Neutrophils # (A) 6.9 k/uL (1.3-7.7); Neutrophils % (A) 79 %; Platelet Count 223 k/uL (150-450); RBC 4.33 m/uL (3.80-5.40); RDW 13.1 % (11.5-15.5); WBC 8.8 k/uL (3.8-10.6)
[2021-05-13 06:03] LABS: MCV 92.9 fL (80.0-100.0)
[2021-05-13 06:30] LABS: Glucose,Whole Blood 196 mg/dL (75-99)
[2021-05-13] MEDS: SODIUM CHLORIDE 0.9% 1,000 ML IV SCH (06:33)
[2021-05-13] MEDS: INSULIN ASPART (NovoLOG) 100 UNIT/ML VIAL SQ SCH ×2 (06:34→13:36)
[2021-05-13 07:01] LABS: African American GFR (CKD) >90 (>60 ml/min/1.73 sqM); Anion Gap 6 mmol/L; Blood Urea Nitrogen 13 mg/dL (7-17); Calcium 8.8 mg/dL (8.4-10.2); Carbon Dioxide 25 mmol/L (22-30); Chloride 107 mmol/L (98-107); Glucose 215 mg/dL (74-99); Magnesium 1.9 mg/dL (1.6-2.3); Non-African American GFR(CKD) >90 (>60 ml/min/1.73 sqM); Phosphorus 3.7 mg/dL (2.5-4.5); Potassium 4.4 mmol/L (3.5-5.1); Sodium 138 mmol/L (137-145)
[2021-05-13 08:08] VITALS: PULSE 89
[2021-05-13] MEDS: methylPREDNISolone SOD SUCCI 40 MG/ML 1 ML VIAL IV SCH (09:09)
[2021-05-13] MEDS: PANTOPRAZOLE 40 MG/10 ML VIAL IV SCH (09:11)
[2021-05-13 13:08] VITALS: BP 141/82; RESP 18; TEMP 97.9
[2021-05-13 13:34] LABS: Glucose,Whole Blood 221 mg/dL (75-99)
--- NOTE | 2021-05-13 14:36 | ECHOS ---
STRESS ECHOCARDIOGRAM DATE OF STUDY: 05/12/2021 INDICATIONS: Chest pain. BASELINE HEART RATE: 88 BASELINE BLOOD PRESSURE: 137/78 MAXIMUM HEART RATE: 88 MAXIMUM BLOOD PRESSURE: 133/62 85% MPHR: 138 100% MPHR: 162 METS: NA MAXIMUM STAGE REACHED: 2 TOTAL EXERCISE TIME: 6:45 infusion time CLINICAL INFORMATION: STRESS DATA: Heart rate is 88, pressure 137/78 mmHg. Baseline EKG showed sinus mechanism. Dobutamine infusion at a dose of 10 mcg/kg per minute was initiated and increased to 25 mcg/kg per minute. Max heart rate was 140, which is about 85% of maximum predicted heart rate. Maximum blood pressure was 137/78 mmHg. Clinically the patient did not have any symptoms and the EKG did not show any significant ST or T-wave abnormalities. ECHOCARDIOGRAM IMAGES: Echocardiogram images from parasternal long axis view, parasternal short axis view, apical 4-chamber and apical 2-chamber views were obtained as the baseline images, at the peak of the heart rate as well as on recovery. The echocardiogram images showed good augmentation in the left ventricular systolic function without any evidence of wall motion abnormalities concerning for ischemia. CONCLUSION: 1. Normal EKG in response to dobutamine. 2. Normal echocardiogram in response to dobutamine. MMODL / IJN: [id number] /
--- NOTE | 2021-05-15 01:20 | P.DS ---
Providers Date of admission: 05/12/21 04:32 Expected date of discharge: 05/13/21 Attending physician: London Maxwell Primary care physician: Cornell Lloyd Hospital Course: Final Diagnosis Chest pain, ruled out ACS Dizziness and weakness Nausea and vomiting possibly secondary to above or possible gastritis Diabetes mellitus type 2 Possible acute urinary tract infection, present on admission most likely asymptomatic bacteriuria as patient is not having any symptoms and patient is afebrile Gastroesophageal reflux disease Hyperlipidemia Hypertension History of asthma Sleep apnea uses CPAP machine at night GI prophylaxis DVT prophylaxis full Code Discharge disposition Patient is being discharged in a stable condition with guarded prognosis to home. Patient will follow-up with Dr. Lloyd in the outpatient setting upon di scharge. Patient will continue on oral ceftin 500 mg for 5 days. Total time taken is greater than 35 minutes. Hospital course This is a pleasant 56-year-old female who came in with chest pain and feelings of dizziness and weakness. Patient reports to having some nausea and vomiting 1 day prior to presentation to emergency department. Patient does have a past medical history of angina diabetes mellitus, GERD, hyperlipidemia, hypertension, sleep apnea and uses a CPAP at home. Patient reports to no smoking and states she uses an inhaler. Eyes any history of COPD and states she has seen a pulmonary doctor in the outpatient setting although unsure of who it was. Patient also reports seeing cardiology in the outpatient setting although cannot recall the name. She denies any recent sick contacts and reports being vaccinated for Covid 19. Patient states that her chest pain is sharp and stabbing in nature and centrally located and denies any radiation to the arm or back. Patient states it had been ongoing a few days prior to presentation to the ER. Urology has been consulted and pending. Chest x-ray showed a normal chest and was placed on supplemental oxygen at 2 L although denies any shortness of breath and does not use oxygen at the home setting. Will Discontinue oxygen and continue with breathing treatments as needed. Patient does have a inhaler at the bedside that she states she uses as needed. She was also started on IV steroids with minimal wheezing noted on exam and will decrease the dose and monitor closely. Accu-Cheks and sliding scale for now. EKG shows normal sinus rhythm and troponins have been negative. 05/13/2021 Patient is seen in follow-up with no acute overnight issues noted. Patient was evaluated by cardiology and underwent stress test which was negative. Patient denies having any urinary symptoms, but was slightly incontinent. urine culture finalized showing klebsiella pneumonia and given her history of resistant UTI, patient will be continued on oral Ceftin 500mg twice daily for 5 days. Patient instructed to follow up with primary care provider on discharge. Currently no reports of chest pain, shortness of breath, or palpitations. Patient is afebrile. No reports of nausea or vomiting and patient is tolerating diet. Patient will be discharged. GENERAL: The patient is alert and oriented x3, not in any acute distress. Well developed, well nourished. HEENT: Pupils are round and equally reacting to light. EOMI. No scleral icterus. No conjunctival pallor. Normocephalic, atraumatic. No pharyngeal erythema. No thyromegaly. CARDIOVASCULAR: S1 and S2 present. No murmurs, rubs, or gallops. PULMONARY: Chest is clear to auscultation, no wheezing or crackles. ABDOMEN: Soft, nontender, distended, normoactive bowel sounds. No palpable organomegaly. MUSCULOSKELETAL: No joint swelling or deformity. EXTREMITIES: No cyanosis, clubbing, or pedal edema. NEUROLOGICAL: Gross neurological examination did not reveal any focal deficits. SKIN: No rashes. no petechiae. On exam vital signs are stable. Cardio S1, S2 are muffled. Respiratory system shows diminished breath sounds at the bases with no wheezing or rhonchi noted. Abdomen is soft and nontender. Nervous system shows no focal deficits. Please refer to medication reconciliation sheet for a list of medications. Patient Condition at Discharge: Stable Plan - Discharge Summary Discharge Rx Participant: No New Discharge Prescriptions: New Cefuroxime Axetil [Ceftin] 500 mg PO BID 4 Days #8 tab Continue Gabapentin [Neurontin] 600 mg PO TID Citalopram Hydrobromide [Citalopram HBr] 40 mg PO DAILY Atorvastatin [Lipitor] 20 mg PO HS lisinopriL [Zestril] 2.5 mg PO DAILY Butalb/Acetaminophen/Caffeine [Fioricet 50-325-40 mg Tablet] 1 tab PO DAILY PRN PRN Reason: Migraine Headache HYDROcodone/APAP 5-325MG [[place] 5-325] 1 tab PO DAILY PRN PRN Reason: Pain Verapamil HCl [Verapamil ER] 120 mg PO DAILY Cholecalciferol (Vitamin D3) [Vitamin D3] 50 mcg PO BID Ibuprofen 800 mg PO TID PRN PRN Reason: Pain Insulin Aspart [NovoLOG Flexpen] 6 units SQ AC-TID Insulin Glargine,Hum.rec.anlog [Lantus Solostar Pen] 32 unit SQ HS Ozempic 2mg/1.5ml 0.25 mg SQ TU Budesonide/Formoterol Fumarate [Symbicort 160-4.5 Mcg Inhaler] 2 puff INHALATION RT-BID Albuterol Sulfate [Proair Hfa] 2 puff INHALATION RT-QID PRN PRN Reason: Shortness Of Breath metFORMIN HCL ER [Glucophage XR] 1,000 mg PO BID Montelukast [Singulair] 10 mg PO DAILY Discharge Medication List Atorvastatin [Lipitor] 20 mg PO HS 12/25/13 [History] Butalb/Acetaminophen/Caffeine [Fioricet 50-325-40 mg Tablet] 1 tab PO DAILY PRN 12/25/13 [History] Citalopram Hydrobromide [Citalopram HBr] 40 mg PO DAILY 12/25/13 [History] Gabapentin [Neurontin] 600 mg PO TID 12/25/13 [History] lisinopriL [Zestril] 2.5 mg PO DAILY 12/25/13 [History] HYDROcodone/APAP 5-325MG [[place] 5-325] 1 tab PO DAILY PRN 12/26/13 [History] Verapamil HCl [Verapamil ER] 120 mg PO DAILY 12/26/13 [History] Cholecalciferol (Vitamin D3) [Vitamin D3] 50 mcg PO BID 08/30/17 [History] Ibuprofen 800 mg PO TID PRN 08/02/19 [History] Albuterol Sulfate [Proair Hfa] 2 puff INHALATION RT-QID PRN 05/12/21 [History] Budesonide/Formoterol Fumarate [Symbicort 160-4.5 Mcg Inhaler] 2 puff INHALATION RT-BID 05/12/21 [History] Insulin Aspart [NovoLOG Flexpen] 6 units SQ AC-TID 05/12/21 [History] Insulin Glargine,Hum.rec.anlog [Lantus Solostar Pen] 32 unit SQ HS 05/12/21 [History] Montelukast [Singulair] 10 mg PO DAILY 05/12/21 [History] Ozempic 2mg/1.5ml 0.25 mg SQ TU 05/12/21 [History] metFORMIN HCL ER [Glucophage XR] 1,000 mg PO BID 05/12/21 [History] Cefuroxime Axetil [Ceftin] 500 mg PO BID 4 Days #8 tab 05/13/21 [Rx] Follow up Appointment(s)/Referral(s): Yuridia Millard MD [STAFF PHYSICIAN] - (May 24 @ 2:00pm) Cornell Lloyd MD [Primary Care Provider] - 1-2 days Juan Bang DO [Doctor of Osteopathic Medicine] - (06-18-2021 @9:15am) Activity/Diet/Wound Care/Special Instructions: Activity Limited until follow-up Continue with antibiotics for 4 days and then discontinue Follow-up with primary care provider on discharge Follow-up cardiology outpatient Follow a pulmonary outpatient Continue with consistent carb heart healthy diet Discharge Disposition: HOME SELF-CARE
== END 2021-05-13 14:30 | disposition home or self-care (01) ==
LOC: EC 02:07 → 6NMEDSUR 04:32 → 6PED 05:44
PROVIDERS: ADMIT Hospitalist; ATTEND Hospitalist
DX: R07.89 Other chest pain (principal); R42 Dizziness and giddiness; R53.1 Weakness; R11.2 Nausea with vomiting, unspecified; E11.9 Type 2 diabetes mellitus without complications; K21.9 Gastro-esophageal reflux disease without esophagitis; R53.83 Other fatigue; R32 Unspecified urinary incontinence; E78.5 Hyperlipidemia, unspecified; I10 Essential (primary) hypertension; J45.909 Unspecified asthma, uncomplicated; G47.30 Sleep apnea, unspecified; M19.09 Primary osteoarthritis, other specified site; F32.9 Major depressive disorder, single episode, unspecified; I25.10 Atherosclerotic heart disease of native coronary artery without angina pectoris; E66.01 Morbid (severe) obesity due to excess calories; Z68.41 Body mass index [BMI] 40.0-44.9, adult; Z20.822 Contact with and (suspected) exposure to COVID-19; Z87.440 Personal history of urinary (tract) infections; Z16.24 Resistance to multiple antibiotics; Z79.82 Long term (current) use of aspirin; Z79.899 Other long term (current) drug therapy; Z79.1 Long term (current) use of non-steroidal anti-inflammatories (NSAID); Z79.4 Long term (current) use of insulin; Z79.51 Long term (current) use of inhaled steroids; Z91.018 Allergy to other foods; Z91.048 Other nonmedicinal substance allergy status; Z80.49 Family history of malignant neoplasm of other genital organs
CPT/HCPCS: 96375 ×2; 96376 ×2; 96361; 96374; 99285; 36415; 93005; 93351; 85379; 83880; 80053; 80048; 82550; 83690; 83735 ×2; 84100 ×2; 84484; 85025 ×2; 85610; 85730; 81001; 87086; 87077; 87186; 83036; 87635; 71046; G0378 ×2; J2060; J1250; J2920 ×2; J2930; J2405; C9113 ×2

== ENCOUNTER → 2021-07-12 | Outpatient (CLI) | payer OTHER ==
[2021-07-12 20:28] LABS: Basophils # (A) 0.02 X 10*3/uL (0.00-0.10); Basophils % (A) 0.3 %; Eosinophils % (A) 2.8 %; HCT 41.4 % (37.2-46.3); HGB 12.7 g/dL (12.0-15.0); Lymphocytes # (A) 1.95 X 10*3/uL (0.90-5.00); Lymphocytes % (A) 26.9 %; MCH 29.1 pg (27.0-32.0); MCHC 30.7 g/dL (32.0-37.0); Mean Platelet Volume 11.2 fL (9.5-12.2); Monocytes # (A) 0.42 X 10*3/uL (0.20-1.00); Monocytes % (A) 5.8 %; Neutrophils # (A) 4.62 X 10*3/uL (1.80-7.70); Neutrophils % (A) 63.8 %; Platelet Count 230 X 10*3/uL (140-440); RBC 4.36 X 10*6/uL (4.10-5.20); RDW 13.3 % (11.5-14.5); WBC 7.24 X 10*3/uL (4.50-10.00)
[2021-07-12 20:52] LABS: ALT 87 U/L (8-44); AST 41 U/L (13-35); African American GFR (CKD) 110.7 (60.0-200.0); Alkaline Phosphatase 121 U/L (41-126); BUN/Creat Ratio 22.86 Ratio (12.00-20.00); Calcium 8.8 mg/dL (8.7-10.3); Carbon Dioxide 26.1 mmol/L (21.6-31.8); Chloride 102 mmol/L (96-109); Globulin 2.1 g/dL (1.6-3.3); Glucose 241 mg/dL (70-110); Non-African American GFR(CKD) 95.5 (60.0-200.0); Potassium 5.4 mmol/L (3.5-5.5); Sodium 141 mmol/L (135-145); Total Bilirubin <0.20 mg/dL (0.30-1.20); Total Protein 6.1 g/dL (6.2-8.2)
[2021-07-12 21:11] LABS: Immunoglobulin E 2.01 IU/mL (0.00-114.00)
[2021-07-12 23:18] LABS: Immunoglobulin E 2.03 IU/mL (0.00-114.00)
[2021-07-13 00:28] LABS: Hepatitis C IgG Antibody Nonreactive (Nonreactive)
[2021-07-13 18:48] LABS: Clam IgE <0.10 kU/L; Codfish IgE <0.10 kU/L; Egg White IgE <0.10 kU/L; Peanut IgE <0.10 kU/L; Scallop IgE <0.10 kU/L; Shrimp IgE <0.10 kU/L; Soybean IgE <0.10 kU/L; Walnut IgE (Food) <0.10 kU/L
[2021-07-13 18:55] LABS: Alternaria alternata IgE <0.10 kU/L; Aspergillus fumagatus IgE <0.10 kU/L; Birch IgE <0.10 kU/L; Cat Epith & Dander IgE <0.10 kU/L; Cladosporian herbarum IgE <0.10 kU/L; Cockroach IgE <0.10 kU/L; Dermato. farinae IgE <0.10 kU/L; Dog Dander IgE <0.10 kU/L; Elm IgE <0.10 kU/L; Maple (Box Elder) IgE <0.10 kU/L; Oak IgE <0.10 kU/L; Ragweed,Common IgE <0.10 kU/L; Red Top (Bentgrass) IgE <0.10 kU/L
== END | disposition home or self-care (01) ==
LOC: LABWHC1 11:00
PROVIDERS: ATTEND Internal Medicine Critical Care Medicine
DX: Z11.59 Encounter for screening for other viral diseases (principal); E11.65 Type 2 diabetes mellitus with hyperglycemia; J45.909 Unspecified asthma, uncomplicated
CPT/HCPCS: 36415; 80053; 82785; 83036; 85025; 86003; 86803

== ENCOUNTER → 2021-11-16 | Outpatient (CLI) | payer OTHER ==
[2021-11-16 14:16] LABS: Basophils # (A) 0.02 X 10*3/uL (0.00-0.10); Basophils % (A) 0.4 %; Eosinophils # (A) 0.27 X 10*3/uL (0.04-0.35); HCT 41.4 % (37.2-46.3); HGB 12.6 g/dL (12.0-15.0); Immature Grans, Automated 0.2 %; Lymphocytes # (A) 1.82 X 10*3/uL (0.90-5.00); Lymphocytes % (A) 33.7 %; MCH 28.3 pg (27.0-32.0); MCHC 30.4 g/dL (32.0-37.0); MCV 92.8 fL (80.0-97.0); Mean Platelet Volume 10.8 fL (9.5-12.2); Monocytes # (A) 0.34 X 10*3/uL (0.20-1.00); Monocytes % (A) 6.3 %; NRBC Per 100 WBC 0 /100 WBCS (0.0-0.0); Neutrophils # (A) 2.94 X 10*3/uL (1.80-7.70); Neutrophils % (A) 54.4 %; Platelet Count 218 X 10*3/uL (140-440); RBC 4.46 X 10*6/uL (4.10-5.20); RDW 12.5 % (11.5-14.5)
[2021-11-16 14:33] LABS: ALT 48 U/L (8-44); AST 24 U/L (13-35); African American GFR (CKD) 120.2 (60.0-200.0); Albumin 4.2 g/dL (3.8-4.9); Albumin/Globulin Ratio 2.16 (1.60-3.17); Alkaline Phosphatase 165 U/L (41-126); Blood Urea Nitrogen 13.3 mg/dL (9.0-27.0); Carbon Dioxide 27.9 mmol/L (20.0-27.5); Chloride 106 mmol/L (96-109); Globulin 1.9 g/dL (1.6-3.3); Glucose 175 mg/dL (70-110); Non-African American GFR(CKD) 103.7 (60.0-200.0); Potassium 4.6 mmol/L (3.5-5.5); Sodium 144 mmol/L (135-145); Total Bilirubin <0.15 mg/dL (0.30-1.20); Total Protein 6.1 g/dL (6.2-8.2)
== END | disposition home or self-care (01) ==
LOC: LABWHC1 09:04
PROVIDERS: ATTEND Family Medicine
DX: E11.9 Type 2 diabetes mellitus without complications (principal)
CPT/HCPCS: 36415; 80053; 83036; 85025

== ENCOUNTER → 2021-12-27 | Outpatient (CLI) | payer OTHER ==
--- NOTE | 2021-12-28 12:01 | MM ---
Reason for exam: screening (asymptomatic). Last mammogram was performed 1 year and 4 months ago. History: Patient is postmenopausal. Took hormonal contraceptives for 28 years beginning at age 18. Physical Findings: A clinical breast exam by your physician is recommended on an annual basis and results should be correlated with mammographic findings. MG Screening Mammo w CAD Bilateral CC and MLO view(s) were taken. XCCL view(s) were taken of the left breast. Prior study comparison: August 26, 2020, bilateral MG screening mammo w CAD. May 23, 2019, bilateral MG screening mammo w CAD. There are scattered fibroglandular densities. There is no discrete abnormality. ASSESSMENT: Negative, BI-RAD 1 RECOMMENDATION: Routine screening mammogram of both breasts in 1 year.
== END | disposition home or self-care (01) ==
LOC: RADMAMWWP 11:16
PROVIDERS: ATTEND Family Medicine
DX: Z12.31 Encounter for screening mammogram for malignant neoplasm of breast (principal)
CPT/HCPCS: 77067

== ENCOUNTER → 2022-04-25 | Outpatient (CLI) | payer OTHER ==
[2022-04-25 18:24] LABS: Basophils # (A) 0.04 X 10*3/uL (0.00-0.10); Basophils % (A) 0.7 %; Eosinophils # (A) 0.24 X 10*3/uL (0.04-0.35); Eosinophils % (A) 4.1 %; HCT 39.8 % (37.2-46.3); HGB 12.6 g/dL (12.0-15.0); Immature Grans, Automated 0.2 %; Lymphocytes # (A) 1.82 X 10*3/uL (0.90-5.00); Lymphocytes % (A) 31.4 %; MCH 28.6 pg (27.0-32.0); MCHC 31.7 g/dL (32.0-37.0); MCV 90.5 fL (80.0-97.0); Mean Platelet Volume 11.2 fL (9.5-12.2); Monocytes % (A) 6.9 %; NRBC Per 100 WBC 0 /100 WBCS (0.0-0.0); Neutrophils # (A) 3.29 X 10*3/uL (1.80-7.70); Neutrophils % (A) 56.7 %; Platelet Count 222 X 10*3/uL (140-440); RDW 13.1 % (11.5-14.5)
[2022-04-25 18:31] LABS: ALT 43 U/L (8-44); AST 34 U/L (13-35); African American GFR (CKD) 102.4 (60.0-200.0); Albumin 4.1 g/dL (3.8-4.9); Albumin/Globulin Ratio 1.77 (1.60-3.17); Alkaline Phosphatase 124 U/L (41-126); BUN/Creat Ratio 18.73 Ratio (12.00-20.00); Blood Urea Nitrogen 13.9 mg/dL (9.0-27.0); Calcium 9.3 mg/dL (8.7-10.3); Carbon Dioxide 27.6 mmol/L (20.0-27.5); Chloride 104 mmol/L (96-109); Globulin 2.3 g/dL (1.6-3.3); Glucose 179 mg/dL (70-110); Non-African American GFR(CKD) 88.4 (60.0-200.0); Potassium 4.9 mmol/L (3.5-5.5); Sodium 141 mmol/L (135-145); Total Bilirubin <0.15 mg/dL (0.30-1.20); Total Protein 6.4 g/dL (6.2-8.2)
== END | disposition home or self-care (01) ==
LOC: LABWHC1 11:26
PROVIDERS: ATTEND Family Medicine
DX: Z00.01 Encounter for general adult medical examination with abnormal findings (principal); E11.9 Type 2 diabetes mellitus without complications
CPT/HCPCS: 36415; 80053; 83036; 85025

== ENCOUNTER 2022-06-17 16:45 | Emergency (ER) | payer OTHER ==
[2022-06-17 16:55] VITALS: TEMP 98.3
[2022-06-17] MEDS ORDERED: FLUORESCEIN STRIPS 1 MG STRIP BOTH EYES ONE (19:23)
[2022-06-17] MEDS ORDERED: PROPARACAINE 0.5% OPHTH DROPS 15 ML BTL BOTH EYES STA (19:23)
[2022-06-17] MEDS ORDERED: SODIUM CHLORIDE 0.9% 1,000 ML IV STA (19:33)
[2022-06-17] MEDS ORDERED: MORPHINE SULFATE 4 MG/ML SYRINGE IV STA (19:33)
[2022-06-17] MEDS ORDERED: ONDANSETRON 4 MG/2 ML VIAL IVP STA ×2 (19:33→22:27)
--- NOTE | 2022-06-17 19:55 | ED ---
Eye Problem HPI - General Chief complaint: Eye Problems Stated complaint: rt eye vision loss, weakness Time Seen by Provider: 06/17/22 19:23 Source: patient, RN notes reviewed Mode of arrival: wheelchair Limitations: no limitations - History of Present Illness Initial comments: This is a pleasant 57-year-old female who states she was vomiting this morning after waking up, having nausea, having stomach cramping and diarrhea. Patient states this started about 7:30 AM. She states she was bending over vomiting and then had vision changes in her right eye. Patient states she did have a headache at the time which is now resolved. However patient states that the vision in the right eye is still impaired. Patient states that she can see light and shadows in the periphery but in her central vision and it appears like she is looking through a red haze. Patient notably has chronic visual loss affecting the left eye. Patient sounds like she had a retinal detachment with subsequent surgery on that eye. Additionally, patient complaining of pain down her right leg since having the vomiting episode. Patient does have chronic back pain. Patient sounds as if she is describing a sciatic type pain. Patient is able to ambulate without difficulty. No focal neurologic deficits or weakness. No headache, no fever or chills, no slurred speech. Exacerbation of chronic back pain with right lumbar radiculopathy type symptoms No changes in hearing, no sore throat or difficulty with speech, no neck pain, no chest pain or shortness of breath, no changes in urination or bowel movements, no numbness or tingling,, no skin rashes or lesions. Past medical, surgical, social, and family history reviewed. MD chief complaint: vision change - Related Data Home Medications Medication Instructions Recorded Confirmed Atorvastatin [Lipitor] 20 mg PO HS 12/25/13 05/12/21 Butalb/Acetaminophen/Caffeine 1 tab PO DAILY PRN 12/25/13 05/12/21 [Fioricet 50-325-40 mg Tablet] Citalopram Hydrobromide 40 mg PO DAILY 12/25/13 05/12/21 [Citalopram HBr] Gabapentin [Neurontin] 600 mg PO TID 12/25/13 05/12/21 lisinopriL [Zestril] 2.5 mg PO DAILY 12/25/13 05/12/21 HYDROcodone/APAP 5-325MG [[place] 1 tab PO DAILY PRN 12/26/13 05/12/21 5-325] Verapamil HCl [Verapamil ER] 120 mg PO DAILY 12/26/13 05/12/21 Cholecalciferol (Vitamin D3) 50 mcg PO BID 08/30/17 05/12/21 [Vitamin D3] Ibuprofen 800 mg PO TID PRN 08/02/19 05/12/21 Albuterol Sulfate [Proair Hfa] 2 puff INHALATION RT-QID PRN 05/12/21 05/12/21 Budesonide/Formoterol Fumarate 2 puff INHALATION RT-BID 05/12/21 05/12/21 [Symbicort 160-4.5 Mcg Inhaler] Insulin Aspart [NovoLOG Flexpen] 6 units SQ AC-TID 05/12/21 05/12/21 Insulin Glargine,Hum.rec.anlog 32 unit SQ HS 05/12/21 05/12/21 [Lantus Solostar Pen] Montelukast [Singulair] 10 mg PO DAILY 05/12/21 05/12/21 Ozempic 2mg/1.5ml 0.25 mg SQ TU 05/12/21 05/12/21 metFORMIN HCL ER [Glucophage XR] 1,000 mg PO BID 05/12/21 05/12/21 Previous Rx's Medication Instructions Recorded cefUROXime axetiL [Ceftin] 500 mg PO BID 4 Days #8 tab 05/13/21 Allergies Allergy/AdvReac Type Severity Reaction Status Date / Time peach Allergy Rash/Hives Verified 05/12/21 08:45 poison farhat extract Allergy Rash/Hives Verified 05/12/21 08:45 poison oak extract Allergy Rash/Hives Verified 05/12/21 08:45 wool Allergy Rash/Hives Verified 05/12/21 08:45 Review of Systems ROS Statement: Those systems with pertinent positive or pertinent negative responses have been documented in the HPI. ROS Other: All systems not noted in ROS Statement are negative. Past Medical History Past Medical History: Chest Pain / Angina, Diabetes Mellitus, GERD/Reflux, Hyperlipidemia, Hypertension, Sleep Apnea/CPAP/BIPAP Additional Past Medical History / Comment(s): CHEST PAIN RADIATING DOWN LEFT ARM INTERMITT.,SOB W/ ACTIVITY,cpap machine History of Any Multi-Drug Resistant Organisms: ESBL Date of last positivie culture/infection: 09/01/19 MDRO Source:: ESBL URINE Past Surgical History: Section, Tubal Ligation Additional Past Surgical History / Comment(s): 01/06/2016 - hysteroscopy with dilation and curretage. 2 cysts removed. left arm mass removed. 18 Years old, laser surgery to have cysts removed. Past Anesthesia/Blood Transfusion Reactions: No Reported Reaction Past Psychological History: Depression Past Alcohol Use History: None Reported Past Drug Use History: None Reported - Past Family History Mother Family Medical History: Cancer Additional Family Medical History / Comment(s): uterine cancer General Exam - General Exam Comments Initial Comments: Patient has multiple bilateral, intrarenal renal calculus. Mild left sided hydronephrosis and hydroureter. No definite ureteral calculus. Limitations: no limitations General appearance: alert, in no apparent distress Head exam: Present: atraumatic, normocephalic, normal inspection Eye exam: Present: normal appearance, PERRL, EOMI. Absent: scleral icterus, conjunctival injection, periorbital swelling Pupils: Present: other (Patient 20/200 left eye, patient can only see light and shadows with central vision of right eye) Expanded Eyelids: Normal Inspection: Bilateral Pupils: Regular, Round: Bilateral Sclera/Conjunctival: Normal Inspection: Bilateral Anterior chamber: Normal Inspection: Bilateral Posterior chamber: Normal Inspection: Bilateral (Normal by Limited exam) Visual acuity (L) = 20/: 200 With correction: Yes IOP (R) in mmH IOP (L) in mmH ENT exam: Present: normal exam, mucous membranes moist Neck exam: Present: normal inspection. Absent: tenderness, meningismus, lymphadenopathy Respiratory exam: Present: normal lung sounds bilaterally. Absent: respiratory distress, wheezes, rales, rhonchi, stridor Cardiovascular Exam: Present: regular rate, normal rhythm, normal heart sounds. Absent: systolic murmur, diastolic murmur, rubs, gallop, clicks GI/Abdominal exam: Present: soft, normal bowel sounds. Absent: distended, tenderness, guarding, rebound, rigid Extremities exam: Present: normal inspection, full ROM, normal capillary refill. Absent: tenderness, pedal edema, joint swelling, calf tenderness Back exam: Present: normal inspection Neurological exam: Present: alert, oriented X3, CN II-XII intact Expanded Patient oriented to: Present: person, place, time Speech: Present: fluid speech Cranial nerves: EOM's Intact: Normal, Gag Reflex: Normal, Tongue Deviation: Normal, Nystagmus: Normal, Facial Sensation: Normal, Facial Palsy with Forehead Movement: Normal, Facial Palsy without Forehead Movement: Normal Cerebellar function: Finger to Nose: Normal, Heel to Chinchilla: Normal Motor strength exam: RUE: 5, LUE: 5, RLE: 5, LLE: 5 Eye Response: (4) open spontaneously Motor Response: (6) obeys commands Verbal Response: (5) oriented Berna Total: 15 Psychiatric exam: Present: normal affect, normal mood Skin exam: Present: warm, dry, intact, normal color. Absent: rash Course Vital Signs 06/17/22 06/17/22 16:53 21:59 Temperature 98.3 F Pulse Rate 86 70 Respiratory 16 18 Rate Blood Pressure 153/69 100/58 O2 Sat by Pulse 98 96 Oximetry - Reevaluation(s) Reevaluation #1: 06/17/22 22:27 Patient was reevaluated and is having recurrence of abdominal cramping, diarrhea, and vomiting. Naresh and Joanie ordered. Reevaluation #2: 06/17/22 2320 Patient again reevaluated prior to discharge and is stable. Patient again electing to follow-up as an outpatient hemodynamically - Consultations Consultation #1: Call was placed for ophthalmology Procedures - Procedures Initial comment: Bedside ultrasound performed by me shows no evidence of definitive retinal detachment. Does have mild abnormality noted in the posterior retina near the macula on ultrasound. Unable to ascertain clinical significance of this. Medical Decision Making - Medical Decision Making Patient unable to see the [place] eye chart with the right eye. She can discern light and shadows, if she turns her head from right to left she can discern the color of the book I am holding up. Patient 20/200 left eye which is actually normal for her after having previous surgery for what sounds like a retinal detachment. Patient presents with nausea, vomiting, abdominal cramping, diarrhea consistent with possible gastroenteritis or colitis. We will order a general workup. More concerning is the patient's vision in her right eye. Patient has chronic vision loss in her left eye. Patient now seeing through a red haze involving what appears to be a central vision of the right eye. Detailed eye examination performed, will plan to discuss with ophthalmology. Symptoms have been present for 12 hours. This case was discussed in detail with on-call ophthalmology, Dr. Dsouza. After long discussion given the patient's symptomatology he felt that the patient could follow-up on Monday with Dr. Solitario as the patient has previously been treated by him. He did not feel this symptomology is consistent with retinal detachment or other eye pathology which needed to be assessed immediately. I again discussed the case with the ED attending physician. I discussed all findings with the patient. I did offer observation however, the patient is electing to discharge. States she feels better. She is still having the impaired vision involving the right eye. Patient states she will call her eye doctor first thing Monday morning. Patient given follow-up information for Dr. Solitario. The case was immediately discussed in detail with ED attending physician. Presentation, findings, treatment plan discussed in detail. Social Media Director Dr. Santiago - Lab Data Result diagrams: 06/17/22 20:18 06/17/22 20:18 Lab Results 06/17/22 06/17/22 06/17/22 Range/Units 20:18 20:18 20:18 WBC 9.1 (3.8-10.6) k/uL RBC 4.51 (3.80-5.40) m/uL Hgb 13.4 (11.4-16.0) gm/dL Hct 40.0 (34.0-46.0) % MCV 88.7 (80.0-100.0) fL MCH 29.8 (25.0-35.0) pg MCHC 33.6 (31.0-37.0) g/dL RDW 13.0 (11.5-15.5) % Plt Count 246 (150-450) k/uL MPV 8.6 Neutrophils % 71 % Lymphocytes % 21 % Monocytes % 5 % Eosinophils % 3 % Basophils % 0 % Neutrophils # 6.4 (1.3-7.7) k/uL Lymphocytes # 1.9 (1.0-4.8) k/uL Monocytes # 0.4 (0-1.0) k/uL Eosinophils # 0.3 (0-0.7) k/uL Basophils # 0.0 (0-0.2) k/uL PT 10.5 (9.0-12.0) sec INR 1.0 (<1.2) APTT 24.7 (22.0-30.0) sec Sodium 140 (137-145) mmol/L Potassium 3.7 (3.5-5.1) mmol/L Chloride 103 (98-107) mmol/L Carbon Dioxide 25 (22-30) mmol/L Anion Gap 12 mmol/L BUN 19 H (7-17) mg/dL Creatinine 0.56 (0.52-1.04) mg/dL Est GFR (CKD-EPI)AfAm >90 (>60 ml/min/1.73 sqM) Est GFR (CKD-EPI)NonAf >90 (>60 ml/min/1.73 sqM) Glucose 118 H (74-99) mg/dL Calcium 9.0 (8.4-10.2) mg/dL Total Bilirubin 0.3 (0.2-1.3) mg/dL AST 23 (14-36) U/L ALT 26 (4-34) U/L Alkaline Phosphatase 101 (38-126) U/L Troponin I (0.000-0.034) ng/mL Total Protein 6.4 (6.3-8.2) g/dL Albumin 4.2 (3.5-5.0) g/dL Lipase 131 (23-300) U/L Urine Color Urine Appearance (Clear) Urine pH (5.0-8.0) Ur Specific [place] (1.001-1.035) Urine Protein (Negative) Urine Glucose (UA) (Negative) Urine Ketones (Negative) Urine Blood (Negative) Urine Nitrite (Negative) Urine Bilirubin (Negative) Urine Urobilinogen (<2.0) mg/dL Ur Leukocyte Esterase (Negative) Urine RBC (0-5) /hpf Urine WBC (0-5) /hpf Ur Squamous Epith Cells (0-4) /hpf Urine Bacteria (None) /hpf Urine Mucus (None) /hpf Coronavirus (PCR) (Not Detectd) 06/17/22 06/17/22 06/17/22 Range/Units 20:18 21:43 22:44 WBC (3.8-10.6) k/uL RBC (3.80-5.40) m/uL Hgb (11.4-16.0) gm/dL Hct (34.0-46.0) % MCV (80.0-100.0) fL MCH (25.0-35.0) pg MCHC (31.0-37.0) g/dL RDW (11.5-15.5) % Plt Count (150-450) k/uL MPV Neutrophils % % Lymphocytes % % Monocytes % % Eosinophils % % Basophils % % Neutrophils # (1.3-7.7) k/uL Lymphocytes # (1.0-4.8) k/uL Monocytes # (0-1.0) k/uL Eosinophils # (0-0.7) k/uL Basophils # (0-0.2) k/uL PT (9.0-12.0) sec INR (<1.2) APTT (22.0-30.0) sec Sodium (137-145) mmol/L Potassium (3.5-5.1) mmol/L Chloride (98-107) mmol/L Carbon Dioxide (22-30) mmol/L Anion Gap mmol/L BUN (7-17) mg/dL Creatinine (0.52-1.04) mg/dL Est GFR (CKD-EPI)AfAm (>60 ml/min/1.73 sqM) Est GFR (CKD-EPI)NonAf (>60 ml/min/1.73 sqM) Glucose (74-99) mg/dL Calcium (8.4-10.2) mg/dL Total Bilirubin (0.2-1.3) mg/dL AST (14-36) U/L ALT (4-34) U/L Alkaline Phosphatase (38-126) U/L Troponin I <0.012 (0.000-0.034) ng/mL Total Protein (6.3-8.2) g/dL Albumin (3.5-5.0) g/dL Lipase (23-300) U/L Urine Color Colorless Urine Appearance Clear (Clear) Urine pH 7.0 (5.0-8.0) Ur Specific [place] 1.004 (1.001-1.035) Urine Protein 1+ H (Negative) Urine Glucose (UA) Negative (Negative) Urine Ketones Negative (Negative) Urine Blood Negative (Negative) Urine Nitrite Negative (Negative) Urine Bilirubin Negative (Negative) Urine Urobilinogen <2.0 (<2.0) mg/dL Ur Leukocyte Esterase Negative (Negative) Urine RBC <1 (0-5) /hpf Urine WBC <1 (0-5) /hpf Ur Squamous Epith Cells 1 (0-4) /hpf Urine Bacteria Rare H (None) /hpf Urine Mucus Rare H (None) /hpf Coronavirus (PCR) Not Detected (Not Detectd) Disposition Clinical Impression: Visual impairment of right eye, Nausea & vomiting, Abdominal cramping, Gastroenteritis Disposition: HOME SELF-CARE Condition: Good Instructions (If sedation given, give patient instructions): Gastroenteritis (ED), Blurred Vision (ED) Additional Instructions: Stick to mostly clear liquids for the next 24 hours. Advance diet as tolerated thereafter. Call the poured wall foreman at 8 AM Monday morning to be rechecked on Monday without fail. We did discuss the case with the on-call poured wall foreman here today, Dr. Dsouza. Follow-up with Dr. Solitario Monday. Follow-up with your regular physician as directed. Return to the ER immediately if any symptoms worsen, new symptoms arise, or any other problems develop. Is patient prescribed a controlled substance at d/c from ED?: No Referrals: Devin Solitario MD [STAFF PHYSICIAN] - 06/20/22 8:00 am Time of Disposition: 23:38
[2022-06-17 20:22] LABS: Basophils % (A) 0 %; Eosinophils # (A) 0.3 k/uL (0-0.7); Eosinophils % (A) 3 %; HGB 13.4 gm/dL (11.4-16.0); Lymphocytes # (A) 1.9 k/uL (1.0-4.8); Lymphocytes % (A) 21 %; MCH 29.8 pg (25.0-35.0); MCHC 33.6 g/dL (31.0-37.0); MCV 88.7 fL (80.0-100.0); Mean Platelet Volume 8.6; Monocytes # (A) 0.4 k/uL (0-1.0); Monocytes % (A) 5 %; Neutrophils # (A) 6.4 k/uL (1.3-7.7); Neutrophils % (A) 71 %; Platelet Count 246 k/uL (150-450); RBC 4.51 m/uL (3.80-5.40); WBC 9.1 k/uL (3.8-10.6)
[2022-06-17 20:30] LABS: ALT 26 U/L (4-34); AST 23 U/L (14-36); African American GFR (CKD) >90 (>60 ml/min/1.73 sqM); Albumin 4.2 g/dL (3.5-5.0); Alkaline Phosphatase 101 U/L (38-126); Anion Gap 12 mmol/L; Blood Urea Nitrogen 19 mg/dL (7-17); Carbon Dioxide 25 mmol/L (22-30); Chloride 103 mmol/L (98-107); Glucose 118 mg/dL (74-99); Lipase 131 U/L (23-300); Non-African American GFR(CKD) >90 (>60 ml/min/1.73 sqM); Potassium 3.7 mmol/L (3.5-5.1); Sodium 140 mmol/L (137-145); Total Bilirubin 0.3 mg/dL (0.2-1.3); Total Protein 6.4 g/dL (6.3-8.2)
[2022-06-17 20:48] LABS: Partial Thromboplastin Time 24.7 sec (22.0-30.0); Prothrombin Time 10.5 sec (9.0-12.0)
--- NOTE | 2022-06-17 20:49 | XR ---
EXAMINATION TYPE: XR abdomen acute w cxr DATE OF EXAM: 06/17/2022 COMPARISON: NONE HISTORY: Pain TECHNIQUE: 4 views FINDINGS: Heart and mediastinum are within normal limits. The lungs are clear of infiltrate. There is no sign of intestinal obstruction or pneumoperitoneum. Fecal pattern is normal. Lung bases are clear . No pathologic calcifications over the kidneys. There are some phleboliths in the pelvis. IMPRESSION: Nonacute abdomen. No active cardiopulmonary disease. Chest x-ray stable compared to 2020.
--- NOTE | 2022-06-17 21:33 | CT ---
EXAMINATION TYPE: CT brain wo con DATE OF EXAM: 06/17/2022 COMPARISON: 07/18/2012 HISTORY: N&V with dizziness and vision changes CT DLP: 1157.6 mGycm Automated exposure control for dose reduction was used. CT brain without contrast. Ventricles have normal size. There is no mass effect or midline shift. No sign of intracranial hemorr jana. The calvarium is intact. The skull base is intact. There is normal aeration of the mastoid sinu ses. IMPRESSION: Negative CT scan of the brain. No change.
[2022-06-17 22:00] VITALS: RESP 18
--- NOTE | 2022-06-17 22:04 | CT ---
EXAMINATION TYPE: CT angio head neck DATE OF EXAM: 06/17/2022 COMPARISON: None HISTORY: nausea, vomiting, dizziness and vision changes CT DLP: 776.4 mGycm Automated exposure control for dose reduction was used. CONTRAST: Performed with IV Contrast, patient injected with 65 mL of Isovue 370. Images obtained from the aortic arch through the vertex of the brain with the IV contrast. There are Three-D postprocessed images. There is normal branching pattern of the great vessels and aortic arch. There is arterial flow in bot h subclavian arteries. There is arterial flow in the common internal and external carotid arteries bi laterally. There is fairly wide patency of the carotid artery bifurcations. There is arterial flow in both vertebral arteries. There is arterial flow in the vertebrobasilar artery system. Right vertebra l artery is larger than the left. Basilar artery fills mostly from the right side. No evidence of car otid or vertebral artery aneurysm or dissection. There is arterial flow in the anterior middle and posterior cerebral arteries bilaterally. No mass ef fect. No evidence of intracranial aneurysm or neovascularity. Normal enhancement of the venous sinuse s. No evidence of intracranial arterial stenosis. IMPRESSION: Negative CT angiogram of the head and neck. No evidence of stenosis.
[2022-06-17] MEDS ORDERED: DICYCLOMINE 10 MG/ML 2 ML AMP IM STA (22:27)
[2022-06-17 22:41] LABS: Appearance,Urine Clear (Clear); Bacteria,Urine Rare /hpf; Bilirubin,Urine Negative (Negative); Blood,Urine Negative (Negative); Color,Urine Colorless; Glucose,Urine (UA) Negative (Negative); Ketones,Urine Negative (Negative); Leukocyte Esterase,Urine Negative (Negative); Mucus,Urine Rare /hpf; Nitrite,Urine Negative (Negative); Protein,Urine 1+ (Negative); RBC,Urine <1 /hpf (0-5); Specific Gravity,Urine 1.004 (1.001-1.035); Squamous Epithelial Cell,Urine 1 /hpf (0-4); Urobilinogen,Urine <2.0 mg/dL (<2.0); WBC,Urine <1 /hpf (0-5)
--- NOTE | 2022-06-17 22:55 | CT ---
EXAMINATION TYPE: CT abdomen pelvis wo con DATE OF EXAM: 06/17/2022 COMPARISON: None HISTORY: vomitting CT DLP: 1143.4 mGycm Automated exposure control for dose reduction was used. Images obtained from the diaphragm to the floor the pelvis with no contrast. There is pre-existing co ntrast from the CT angiogram. Lung bases are clear of consolidation. No pleural effusion. There is mild subsegmental atelectasis at the lung bases. Heart size is normal. No pericardial effusion. Liver spleen and stomach pancreas and gallbladder appear normal. The bone texture not dilated. There is no adrenal mass. Kidneys show normal size and contour. There is satisfactory contrast excret ion. Ureters are not dilated. No retroperitoneal adenopathy. Appendix is posterior and appears normal . The bladder distends smoothly. No inguinal hernia. Uterus is anteverted. There is IUD in the uterin e fundus. No pelvic mass. No free fluid in the pelvis. There is no mesenteric edema. No ascites or free air. No sign of a bowel obstruction. The lumbar vertebrae have normal spacing and alignment. Posterior elements are intact. No compression fracture. Bony pelvis is intact. The hip joints are intact. Sacrum and coccyx are intact. IMPRESSION: Minimal subsegmental atelectasis at the lung bases. Normal heart. Normal appendix. No acute abnormali ty in the abdomen and pelvis.
[2022-06-17] MEDS ORDERED: ONDANSETRON 4 MG ODT STARTER PACK 2 TAB BTL PO STA (23:34)
[2022-06-18 00:22] VITALS: BP 111/62; PULSE 81
== END 2022-06-18 00:22 | disposition home or self-care (01) ==
LOC: EC 16:45
DX: H53.131 Sudden visual loss, right eye (principal); K52.9 Noninfective gastroenteritis and colitis, unspecified; E11.9 Type 2 diabetes mellitus without complications; K21.9 Gastro-esophageal reflux disease without esophagitis; E78.5 Hyperlipidemia, unspecified; I10 Essential (primary) hypertension; F32.A Depression, unspecified; Z91.018 Allergy to other foods; Z91.038 Other insect allergy status; Z91.048 Other nonmedicinal substance allergy status; Z79.4 Long term (current) use of insulin; Z79.899 Other long term (current) drug therapy; Z20.822 Contact with and (suspected) exposure to COVID-19
CPT/HCPCS: 36415; 80053; 83690; 84484; 85025; 85610; 85730; 81001; 87635; 74022; 70496; 70450; 70498; 74176; 99285; 96374; 96375; 96361 ×4; J2270; J2405; Q9967

== ENCOUNTER → 2022-09-09 | Outpatient (CLI) | payer OTHER ==
[2022-09-09 15:38] LABS: Basophils # (A) 0.03 X 10*3/uL (0.00-0.10); Basophils % (A) 0.5 %; Eosinophils # (A) 0.28 X 10*3/uL (0.04-0.35); Eosinophils % (A) 4.3 %; HCT 38.1 % (37.2-46.3); HGB 11.8 g/dL (12.0-15.0); Immature Grans, Automated 1.1 %; Lymphocytes # (A) 1.94 X 10*3/uL (0.90-5.00); Lymphocytes % (A) 29.6 %; MCH 28.1 pg (27.0-32.0); MCV 90.7 fL (80.0-97.0); Mean Platelet Volume 10.3 fL (9.5-12.2); Monocytes # (A) 0.42 X 10*3/uL (0.20-1.00); Monocytes % (A) 6.4 %; NRBC Per 100 WBC 0 /100 WBCS (0.0-0.0); Neutrophils # (A) 3.81 X 10*3/uL (1.80-7.70); Neutrophils % (A) 58.1 %; Platelet Count 216 X 10*3/uL (140-440); RDW 13.2 % (11.5-14.5); WBC 6.55 X 10*3/uL (4.50-10.00)
[2022-09-09 15:59] LABS: ALT 33 U/L (8-44); AST 19 U/L (13-35); African American GFR (CKD) 115.6 (60.0-200.0); Albumin 4.1 g/dL (3.8-4.9); Albumin/Globulin Ratio 1.95 (1.60-3.17); Alkaline Phosphatase 129 U/L (41-126); BUN/Creat Ratio 23.67 Ratio (12.00-20.00); Blood Urea Nitrogen 14.2 mg/dL (9.0-27.0); Carbon Dioxide 28.3 mmol/L (20.0-27.5); Chloride 107 mmol/L (96-109); Chol/HDL Ratio 3.36 Ratio; Globulin 2.1 g/dL (1.6-3.3); Glucose 97 mg/dL (70-110); LDL Cholesterol,Calculated 47.7 mg/dL (0.0-131.0); Non-African American GFR(CKD) 99.8 (60.0-200.0); Potassium 4.4 mmol/L (3.5-5.5); Sodium 144 mmol/L (135-145); Total Protein 6.2 g/dL (6.2-8.2)
== END | disposition home or self-care (01) ==
LOC: LABWHC1 10:07
PROVIDERS: ATTEND Family Medicine
DX: Z00.01 Encounter for general adult medical examination with abnormal findings (principal); E11.9 Type 2 diabetes mellitus without complications; E55.9 Vitamin D deficiency, unspecified
CPT/HCPCS: 36415; 80053; 80061; 82306; 83036; 85025

== ENCOUNTER → 2022-09-16 | Outpatient (CLI) | payer OTHER ==
[2022-09-16 18:12] LABS: Basophils # (A) 0.02 X 10*3/uL (0.00-0.10); Basophils % (A) 0.3 %; Eosinophils # (A) 0.17 X 10*3/uL (0.04-0.35); Eosinophils % (A) 2.5 %; HCT 39.8 % (37.2-46.3); HGB 12.2 g/dL (12.0-15.0); Immature Grans, Automated 0.3 %; Lymphocytes % (A) 20.2 %; MCH 27.8 pg (27.0-32.0); MCHC 30.7 g/dL (32.0-37.0); MCV 90.7 fL (80.0-97.0); Mean Platelet Volume 10.7 fL (9.5-12.2); Monocytes # (A) 0.38 X 10*3/uL (0.20-1.00); Monocytes % (A) 5.5 %; NRBC Per 100 WBC 0 /100 WBCS (0.0-0.0); Neutrophils # (A) 4.93 X 10*3/uL (1.80-7.70); Neutrophils % (A) 71.2 %; Platelet Count 244 X 10*3/uL (140-440); RBC 4.39 X 10*6/uL (4.10-5.20); RDW 13.3 % (11.5-14.5); WBC 6.92 X 10*3/uL (4.50-10.00)
[2022-09-16 18:24] LABS: % Iron Saturation 12.17 (12.00-45.00)
== END | disposition home or self-care (01) ==
LOC: LABWHC1 11:44
PROVIDERS: ATTEND Family Medicine
DX: D64.9 Anemia, unspecified (principal)
CPT/HCPCS: 82747; 82607; 83540; 83550; 85025; 36415; G0328

== ENCOUNTER → 2023-03-28 | Outpatient (CLI) | payer OTHER ==
[2023-03-28 15:55] LABS: Basophils # (A) 0.04 X 10*3/uL (0.00-0.10); Basophils % (A) 0.6 %; Eosinophils % (A) 4.1 %; HCT 38.3 % (37.2-46.3); HGB 12.1 d/dL (12.0-15.0); Lymphocytes # (A) 1.95 X 10*3/uL (0.90-5.00); Lymphocytes % (A) 26.9 %; MCH 28.8 pg (27.0-32.0); MCHC 31.6 d/dL (32.0-37.0); MCV 91.2 FL (80.0-97.0); Mean Platelet Volume 10.9 FL (9.5-12.2); Monocytes % (A) 5.5 %; NRBC Per 100 WBC 0 X 10*3/uL (0.00-0.01); Neutrophils # (A) 4.56 X 10*3/uL (1.80-7.70); Neutrophils % (A) 62.8 %; Platelet Count 222 X 10*3/uL (140-440); WBC 7.26 X 10*3/uL (4.50-10.00)
[2023-03-28 16:23] LABS: ALT 35 U/L (8-44); AST 16 U/L (13-35); Albumin 4.2 d/dL (3.8-4.9); Albumin/Globulin Ratio 2.33 Ratio (1.60-3.17); Alkaline Phosphatase 120 U/L (41-126); BUN/Creat Ratio 21.17 Ratio (12.00-20.00); Blood Urea Nitrogen 12.7 mg/dL (9.0-27.0); Calcium 9.6 mg/dL (8.7-10.3); Carbon Dioxide 28.5 mmol/L (21.6-31.8); Chloride 108 mmol/L (96-109); Chol/HDL Ratio 2.41 Ratio; Globulin 1.8 d/dL (1.6-3.3); Glucose 94 mg/dL (70-110); LDL Cholesterol,Calculated 49.8 mg/dL (0.0-131.0); Potassium 5.5 mmol/L (3.5-5.5); Sodium 145 mmol/L (135-145); Total Bilirubin <0.2 mg/dL (0.3-1.2); VLDL Calculation 19.32 mg/dL (5.00-40.00)
== END | disposition home or self-care (01) ==
LOC: LABWHC1 11:50
PROVIDERS: ATTEND Family Medicine
DX: Z00.00 Encounter for general adult medical examination without abnormal findings (principal); E55.9 Vitamin D deficiency, unspecified; E11.9 Type 2 diabetes mellitus without complications
CPT/HCPCS: 36415; 80053; 80061; 82306; 83036; 85025

== ENCOUNTER → 2023-04-03 | Outpatient (CLI) | payer OTHER ==
--- NOTE | 2023-04-04 08:56 | MM ---
Reason for Exam: Screening (asymptomatic). Last mammogram was performed 1 year(s) and 3 month(s) ago. Patient History: Menarche at age 10. First Full-Term at age 22. Postmenopausal. Hormonal Contraceptives for 28 years from age 18 until age 46. Risk Values: Tsering 5 year model risk: 1.3%. NCI Lifetime model risk: 6.6%. Prior Study Comparison: 05/23/2019 Bilateral Screening Mammogram, [facility]. 08/26/2020 Bilateral Screening Mammogram, [facility]. 12/27/2021 Bilateral Screening Mammogram, [facility]. Tissue Density: There are scattered fibroglandular densities. Findings: Analyzed By CAD. There is no suspicious group of microcalcifications or new suspicious mass in either breast. Overall Assessment: Negative, BI-RAD 1 Management: Screening Mammogram of both breasts in 1 year. . Patient should continue monthly self-breast exams. A clinical breast exam by your physician is recommended on an annual basis. This exam should not preclude additional follow-up of suspicious palpable abnormalities. Note on Tsering scores and lifetime risk: 1. A Tsering score greater than 3% is considered moderate risk. If this is the case, consider specialist referral to assess eligibility for a risk reducing agent. 2. If overall lifetime risk for the development of breast cancer is 20% or higher, the patient may qualify for future screening with alternating mammogram and breast MRI. Electronically signed and approved by: Nicholas Zhu M.D. Radiologis
== END | disposition home or self-care (01) ==
LOC: RADMAMWWP 11:42
PROVIDERS: ATTEND Family Medicine
DX: Z12.31 Encounter for screening mammogram for malignant neoplasm of breast (principal); Z78.0 Asymptomatic menopausal state
CPT/HCPCS: 77067

== ENCOUNTER → 2023-09-19 | Outpatient (CLI) | payer OTHER ==
[~2023-09-19] MED LIST changes: -LACTATED RINGERS 1,000 ML IV SCH; -LIDOCAINE 1% 20 ML VIAL (10MG/ML) FOR IV START INTRADERMA PRN; +REGADENOSON 0.4 MG/5 ML SYRINGE IV PRN
--- NOTE | 2023-09-19 13:06 | NM ---
EXAMINATION TYPE: NM stress lexiscan cardiolite DATE OF EXAM: 09/19/2023 COMPARISON: NONE CLINICAL INDICATION: Female, 58 years old with history of R07.9 chest pain; TECHNIQUE: After the intravenous administration of 10.7 mCi Tc 99m Sestamibi - Cardiolite resting SP ECT images acquired 45 minutes post injection. The patient received 0.4mg Lexiscan, 25.5 mCi Tc 99m Sestamibi - Stress images obtained [address] injection FINDINGS: Review of stress and rest SPECT images demonstrates decreased perfusion along the mid to apical anter ior wall, more pronounced on stress. Additional area of possible reversibility along the apex of the heart. There is significant limitation is due to GI activity which moves into close proximity on the stress images. Gated analysis shows normal wall motion with an estimated left ventricular ejection fraction of 59 %. TID is calculated normal at 0.85. IMPRESSION: Significant exam limitations related to combination of anterior wall attenuation artifact and prominent GI activity along the inferior wall especially on the stress images. Based on this exa m, unable to exclude old infarct mid to apical anterior wall and small area of rosa-infarct ischemia at the apex. Again, significant exam limitations makes these findings questionable.
--- NOTE | 2023-09-19 17:43 | CA ---
Lexiscan Nuclear Stress Test Report Name: Maya Moyer Exam Date: 09/19/2023 10:04 Exam Location: [facility] Stress Ht (in): 65 Wt (lb): 235 BSA: 2.12 Ordering Phys: Yuridia Millard MD Referring Phys: NINI, Technologist: Ko Burger Age: 58 Gender: F : 1965 Procedure CPT: Indications: R07.9 CHEST PAIN ICD-10 Codes: Patient History: Medications: SEE LIST Meds past 24 hrs: Pretest Chest Pain: STRESS TEST Lexiscan Protocol Exercise Duration (min:sec): 01:[address] Depressions (mm): Angina Score: Hunt Score: Resting HR (bpm): 78 Peak HR (bpm): 114 Resting BP (mmHg): 143 / 68 Peak BP (mmHg): 177 / 80 MPHR: 160 Target HR: 136 % MPHR: 71 METS: 1.0 Total Dose: Peak Dose: Atropine: Double Product: BP Response: Stress Termination: INFUSION COMPLETE Stress Symptoms: NO SYMPTOMS Stress Summary: ECG ANALYSIS Resting ECG: Stress ECG: CONCLUSIONS None diagnostic electrocardiogram stress test Dr. Roly Vazquez MD (Electronically Signed) Final Date: 19 September 2023 17:43
== END | disposition home or self-care (01) ==
LOC: RADNMMAIN 08:42
PROVIDERS: ATTEND Internal Medicine Interventional Cardiology
DX: R07.9 Chest pain, unspecified (principal)
CPT/HCPCS: 93017; 78452; A9500; J2785

== ENCOUNTER → 2023-10-12 | Outpatient (CLI) | payer OTHER ==
[2023-10-13 02:18] LABS: Basophils # (A) 0.03 X 10*3/uL (0.00-0.10); Basophils % (A) 0.4 %; Eosinophils # (A) 0.28 X 10*3/uL (0.04-0.35); Eosinophils % (A) 3.5 %; HCT 40.7 % (37.2-46.3); HGB 12.7 g/dL (12.0-15.0); Lymphocytes # (A) 2.42 X 10*3/uL (0.90-5.00); Lymphocytes % (A) 30.2 %; MCH 28.5 pg (27.0-32.0); MCHC 31.2 g/dL (32.0-37.0); MCV 91.3 FL (80.0-97.0); Mean Platelet Volume 10.6 FL (9.5-12.2); Monocytes # (A) 0.46 X 10*3/uL (0.20-1.00); Monocytes % (A) 5.7 %; NRBC Per 100 WBC 0 X 10*3/uL (0.00-0.01); Neutrophils # (A) 4.81 X 10*3/uL (1.80-7.70); Platelet Count 266 X 10*3/uL (140-440); RBC 4.46 X 10*6/uL (4.10-5.20); WBC 8.02 X 10*3/uL (4.50-10.00)
[2023-10-13 02:55] LABS: Blood Urea Nitrogen 14.3 mg/dL (9.0-27.0); Carbon Dioxide 28.4 mmol/L (21.6-31.8); Chloride 104 mmol/L (96-109); Potassium 4.5 mmol/L (3.5-5.5); Sodium 144 mmol/L (135-145)
== END | disposition home or self-care (01) ==
LOC: LABPAT 16:18
PROVIDERS: ATTEND Internal Medicine Interventional Cardiology
DX: Z01.812 Encounter for preprocedural laboratory examination (principal); R94.39 Abnormal result of other cardiovascular function study; R07.9 Chest pain, unspecified
CPT/HCPCS: 80051; 82565; 84520; 85025

== ENCOUNTER 2023-10-16 07:49 | Day surgery (SDC) | payer OTHER ==
[2023-10-16] MEDS ORDERED: ALPRAZolam 0.25 MG TAB PO PRN (07:55)
[2023-10-16] MEDS ORDERED: SODIUM CHLORIDE 0.9% 1,000 ML in EMPTY BAG 1 BAG IV SCH (07:55)
[2023-10-16] MEDS ORDERED: ALPRAZolam 0.5 MG TAB PO PRN (07:55)
[2023-10-16] MEDS ORDERED: NITROGLYCERIN SL TABS 0.4 MG TAB SUBLINGUAL PRN (07:55)
[2023-10-16] MEDS ORDERED: ASPIRIN 325 MG TAB PO STA (07:55)
[2023-10-16 08:17] LABS: Glucose,Whole Blood 105 mg/dL (70-110)
[2023-10-16] MEDS: SODIUM CHLORIDE 0.9% 1,000 ML IV ONE (08:18)
[2023-10-16 08:36] VITALS: RESP 16; TEMP 97.6
[2023-10-16] MEDS ORDERED: LIDOCAINE 1% INJ 10MG/ML (20 ML MDV) ONE (09:08)
[2023-10-16] MEDS ORDERED: fentaNYL (PF) 50 MCG/ML 2 ML AMP ONE (09:08)
[2023-10-16] MEDS ORDERED: VERAPAMIL 2.5 MG/ML 2 ML AMP ONE (09:08)
[2023-10-16] MEDS ORDERED: HEPARIN SODIUM 1,000 UN/ML (10ML VL) ONE (09:09)
[2023-10-16] MEDS: LIDOCAINE 1% INJ 10MG/ML (5 ML VIAL-PF) SQ ONE (09:34)
[2023-10-16] MEDS: LIDOCAINE 1% INJ 10MG/ML (20 ML MDV) SQ ONE (09:34)
[2023-10-16] MEDS: VERAPAMIL SYRINGE (5 MG/10 ML) INTRAARTER ONE (09:35)
[2023-10-16] MEDS: fentaNYL (PF) 50 MCG/1 ML VIAL IVP ONE (09:36)
[2023-10-16] MEDS: MIDAZOLAM 2 MG/2 ML VIAL IVP ONE (09:37)
[2023-10-16] MEDS: HEPARIN SODIUM 1,000 UN/ML (10ML VL) IV ONE (09:41)
[2023-10-16] MEDS: IOPAMIDOL-370 100ML BTL INJ ONE (09:51)
[2023-10-16] MEDS ORDERED: RX INFO: IV CONTRAST WAS GIVEN 1 EACH MISC MISCELLANE PRN (09:58)
[2023-10-16] MEDS ORDERED: SODIUM CHLORIDE 0.9% 1,000 ML IV SCH (10:00)
--- NOTE | 2023-10-16 10:03 | P.CARDCATH ---
Date of Procedure: 10/16/23 Description of Procedure: Cardiac Catheterization: The patient is a 58-year-old female with a known history of hypertension, hyperlipidemia and diabetes who has been complaining of chest discomfort, had an abnormal MPI. Recommendations were made regarding cardiac catheterization, the risks and the complications were discussed with the patient who is in full understanding and agreement. Procedure Description: Patient was brought to laboratory sample carrier in fasting semi-sedated state after receiving Fentanyl and Benadryl achieiving moderate conscious sedated state. Using Xylocaine Anesthesia and modified Seldinger technique, a 6-Guamanian sheath was introduced in the right radial artery . Subsequently, selective coronary angiography was performed using a 5-Guamanian 3.5 bend Tigist catheter. Multiple views of the coronary artery including hemiaxial views were obtained. The 5 Guamanian pigtail catheter was used to cross the aortic valve and LVEDP was calculated. Following that, catheter and sheath were removed. Hemostasis was obtained with deployment of vascular band . There was no immediate complication. Patient was returned to room in stable condition. Of note, the patient received a total of 5000 units of intravenous heparin as well as intra-arterial verapamil. Findings: Left main: This is a large size vessel, bifurcating into LAD and left circumflex, left main has no obstructive disease LAD: This is a large size vessel reaching to the apex, giving rise to a large proximal diagonal branch. The LAD and its branches have no obstructive disease Left circumflex: This is a large nondominant vessel giving rise to a large obtuse marginal branch that has no obstructive disease RCA: This is a large dominant vessel, bifurcating into PDA and PLV, the right coronary artery and its branches have no obstructive disease Left Ventriculogram: Not performed Hemodynamics: There was no gradient across aortic valve, LVEDP was 5-10 mmHg Conclusion: 1. No evidence of obstructive disease 2. Right dominance 3. Normal LVEDP Recommendations: I have recommended to continue medical therapy with the aggressive coronary risks modifications. The findings and the recommendations were discussed with the patient and the family and they were in full understanding and agreement. Duration of sedation is 15 minutes.
[2023-10-16 14:45] VITALS: BP 142/65; PULSE 78
[2023-10-16] MEDS ORDERED: SERTRALINE 50 MG TAB PO SCH (16:00)
[2023-10-16] MEDS ORDERED: ATORVASTATIN 20 MG TAB PO SCH (21:00)
[2023-10-17] MEDS ORDERED: NON FORMULARY DRUG (Aspirin [St. Joseph Aspirin Ec] 81 MG Tab) PO SCH (09:00)
[2023-10-17] MEDS ORDERED: MONTELUKAST 10 MG TAB PO SCH (09:00)
[2023-10-17] MEDS ORDERED: VERAPAMIL SR 120 MG TABLET.ER PO SCH (09:00)
== END 2023-10-16 14:25 | disposition home or self-care (01) ==
LOC: CATHCVL 07:49
PROVIDERS: ATTEND Internal Medicine Interventional Cardiology
DX: R94.39 Abnormal result of other cardiovascular function study (principal); I10 Essential (primary) hypertension; E78.5 Hyperlipidemia, unspecified; E11.9 Type 2 diabetes mellitus without complications; G47.33 Obstructive sleep apnea (adult) (pediatric); Z79.84 Long term (current) use of oral hypoglycemic drugs; Z79.4 Long term (current) use of insulin; Z79.82 Long term (current) use of aspirin; Z79.899 Other long term (current) drug therapy; Z87.891 Personal history of nicotine dependence
CPT/HCPCS: 93458; C1769 ×2; C1894; J2250; J2001; J1644; Q9967; J3010

== ENCOUNTER → 2024-08-15 | Outpatient (CLI) | payer OTHER ==
[2024-08-15 19:23] LABS: Basophils # (A) 0.04 X 10*3/uL (0.00-0.10); Basophils % (A) 0.6 %; Eosinophils # (A) 0.27 X 10*3/uL (0.04-0.35); Eosinophils % (A) 4.1 %; HCT 40.1 % (37.2-46.3); HGB 12.8 g/dL (12.0-15.0); Lymphocytes # (A) 1.99 X 10*3/uL (0.90-5.00); Lymphocytes % (A) 30.1 %; MCHC 31.9 g/dL (32.0-37.0); MCV 87.7 FL (80.0-97.0); Mean Platelet Volume 10.6 FL (9.5-12.2); Monocytes # (A) 0.41 X 10*3/uL (0.20-1.00); Monocytes % (A) 6.2 %; NRBC Per 100 WBC 0 X 10*3/uL (0.00-0.01); Neutrophils # (A) 3.89 X 10*3/uL (1.80-7.70); Neutrophils % (A) 58.8 %; Platelet Count 235 X 10*3/uL (140-440); RBC 4.57 X 10*6/uL (4.10-5.20); RDW 13.1 % (11.5-14.5); WBC 6.61 X 10*3/uL (4.50-10.00)
[2024-08-15 19:36] LABS: ALT 38 U/L (8-44); AST 23 U/L (13-35); Albumin 4.2 g/dL (3.8-4.9); Albumin/Globulin Ratio 1.91 Ratio (1.60-3.17); Alkaline Phosphatase 112 U/L (41-126); BUN/Creat Ratio 19.83 Ratio (12.00-20.00); Blood Urea Nitrogen 11.9 mg/dL (9.0-27.0); Calcium 9.1 mg/dL (8.7-10.3); Carbon Dioxide 26.7 mmol/L (21.6-31.8); Chloride 105 mmol/L (96-109); Chol/HDL Ratio 2.77 Ratio; Globulin 2.2 g/dL (1.6-3.3); Glucose 96 mg/dL (70-110); LDL Cholesterol,Calculated 65.9 mg/dL (0.0-131.0); Potassium 4.6 mmol/L (3.5-5.5); Sodium 142 mmol/L (135-145); Total Bilirubin 0.2 mg/dL (0.3-1.2); Total Protein 6.4 g/dL (6.2-8.2); VLDL Calculation 19.06 mg/dL (5.00-40.00)
== END | disposition home or self-care (01) ==
LOC: LABWHC1 13:09
PROVIDERS: ATTEND Family Medicine
DX: I10 Essential (primary) hypertension (principal); E11.65 Type 2 diabetes mellitus with hyperglycemia; E55.9 Vitamin D deficiency, unspecified
CPT/HCPCS: 36415; 80053; 80061; 82043; 82306; 82570; 83036; 85025

== ENCOUNTER → 2025-03-13 | Outpatient (CLI) | payer OTHER ==
[2025-03-13 19:17] LABS: Basophils # (A) 0.04 X 10*3/uL (0.00-0.10); Basophils % (A) 0.5 %; Eosinophils # (A) 0.33 X 10*3/uL (0.04-0.35); Eosinophils % (A) 4.4 %; HCT 39.0 % (37.2-46.3); HGB 12.2 g/dL (12.0-15.0); Immature Grans, Automated 0.30 %; Lymphocytes # (A) 1.99 X 10*3/uL (0.90-5.00); Lymphocytes % (A) 26.5 %; MCH 28.3 pg (27.0-32.0); MCHC 31.3 g/dL (32.0-37.0); MCV 90.5 FL (80.0-97.0); Monocytes # (A) 0.46 X 10*3/uL (0.20-1.00); Monocytes % (A) 6.1 %; NRBC Per 100 WBC 0 X 10*3/uL (0.00-0.01); Neutrophils # (A) 4.66 X 10*3/uL (1.80-7.70); Neutrophils % (A) 62.2 %; Platelet Count 276 X 10*3/uL (140-440); RBC 4.31 X 10*6/uL (4.10-5.20); RDW 13.3 % (11.5-14.5); WBC 7.50 X 10*3/uL (4.50-10.00)
[2025-03-13 20:22] LABS: ALT 58 U/L (8-44); AST 32 U/L (13-35); Albumin 3.9 g/dL (3.8-4.9); Albumin/Globulin Ratio 1.62 Ratio (1.60-3.17); Alkaline Phosphatase 143 U/L (41-126); Anion Gap 10.50 mmol/L (4.00-12.00); BUN/Creat Ratio 16.29 Ratio (12.00-20.00); Blood Urea Nitrogen 11.4 mg/dL (9.0-27.0); Calcium 8.7 mg/dL (8.7-10.3); Carbon Dioxide 25.5 mmol/L (21.6-31.8); Chloride 102 mmol/L (96-109); Globulin 2.4 g/dL (1.6-3.3); Glucose 207 mg/dL (70-110); Potassium 4.7 mmol/L (3.5-5.5); Sodium 138 mmol/L (135-145); Total Protein 6.3 g/dL (6.2-8.2)
== END | disposition home or self-care (01) ==
LOC: LABWHC1 15:55
PROVIDERS: ATTEND Family Medicine
DX: E11.9 Type 2 diabetes mellitus without complications (principal)
CPT/HCPCS: 36415; 80053; 83036; 85025